=== PATIENT | male | born 1955 | race Caucasian/White ===

== ENCOUNTER 2016-10-28 13:42 | Inpatient (IN) ==
[~2016-10-28 13:42] MED LIST: LIDOCAINE 1% 5 ML VIAL ONE; ONDANSETRON 4 MG/2 ML VIAL ONE; PHENYLEPHRINE 1 MG/10 ML SYRINGE IV ONE; PHENYLEPHRINE 50 MG/5 ML VIAL ONE; PROPOFOL 200 MG/20 ML VIAL IV ONE; ROCURONIUM 100 MG/10 ML VIAL IV ONE
--- NOTE | 2016-10-28 18:31 | Cardiothoracic History & Phys ---
Assessment and Plan - Time spent with patient Time spent with patient: Greater than 30 minutes (1) Coronary artery disease Status: Acute Assessment and plan: 61-year-old year-old male with very complex medical history including compensated liver failure, alcoholic liver cirrhosis, renal failure, history of CVA was found to have severe coronary artery disease as well as pericardial calcifications. We had a very prolonged discussion with his operator Dr. Rivera, his technical business systems analyst Dr. Parrish, as well as the patient and his daughter as the patient presents very high risk for surgery due to his medical history. We clearly explained to the patient that he is high risk for surgery and he is risk of mortality is considerably above average. The patient and his daughter expressed clear understanding of the risks involved and the clearly prefer proceeding with the surgery. I will perform coronary artery bypass graft on October 30. At that time I will also likely perform a pericardiectomy to avoid compression on the heart is a patient has calcified precordium. 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 The patient was kept on anticoagulation during his time at [place]. I would likely restart his anticoagulation after surgery. Meanwhile I will hold anti-coagulation in anticipation for surgery to avoid increased risk of bleeding. Current Visit: Yes History of Present Illness Chief complaint: Coronary artery disease History of present illness: Mr. Chacon is a 61 year old male who I evaluated at [facility] with history of alcoholic liver cirrhosis and liver failure a year ago, now compensated, also renal failure not requiring dialysis at the moment was found to have severe multivessel coronary artery disease most severely in the LAD. Currently the patient has no complaints but his main complaint is that he gets short of breath occasionally as well as leg crampings. He had a cath showing this coronary artery disease. I have been in discussions with Dr. Parrish, Dr. Nava and the patient and the family regarding his high risk for surgery. The patient strongly feels that he should proceed with CABG. Allergies Allergy/AdvReac Type Severity Reaction Status Date / Time Penicillins Allergy Unknown Unknown/Unable Verified 10/28/16 18:25 to obtain 12 point system: reviewed and no additional remarkable complaints except as stated (hpi) Medical,Surgical,& Family Hx - Medical History Cardio: History of: Cardiac Dysrhythmia, Cerebrovascular Disease, CHF, CAD, Hypertension, PVD, Cardiovascular Problems Psychological: History of: Anxiety Disorders Neurology: History of: Cerebrovascular Accident HEENT: History of: Eye Problem Endocrine: History of: Diabetes Mellitus (NIDDM) Respiratory: History of: COPD Renal: History of: Renal Failure Gastrointestinal: History of: Liver Problems, GI Problems - Surgical History Cardiac Surgeries: Sugical HX of: Cardiac Catheterization HEENT Surgeries: Surgical HX of: Eye Surgery - Family History Family History: Reports;: Family Diabetes, Family Heart Disease - Social History Smoking Status: Former smoker Have you smoked in the last 12 months: Yes Time spent discussing smoking cessation with patient: more than 10 minutes Frequency of Alcohol Use: Occasionally Type of Drug Use: None Functional capacity: independent ambulation Cardiology Physical Exam - Constitutional Vitals: Vital Signs Temp Pulse Resp BP Pulse Ox 98.1 F 66 20 136/74 98 10/28/16 18:10 10/28/16 18:10 10/28/16 18:10 10/28/16 18:10 10/28/16 18:10 Intake and Output 10/28/16 10/28/16 10/28/16 06:59 14:59 22:59 Other: Weight 64.864 kg Patient Weight 10/29/16 06:59 Weight 64.864 kg General appearance: normal weight - Head Head exam: Present: normal inspection, other (Artificial eye) - Eye Eye exam: Present: EOMI - ENT ENT exam: Present: normal exam - Neck Neck exam: Present: normal inspection - Respiratory Respiratory exam: Present: prolonged expiratory phase - Cardiovascular Cardiovascular exam: Present: irregular rhythm - GI/Abdominal GI/Abdominal exam: Present: normal bowel sounds Quality Measures - VTE Contraindication to Pharmacological VTE Prophylaxis: Active Bleeding
[2016-10-28 21:06] LABS: Basophils % 0.6 % (0.0-0.8); Eosinophils # 0.1 10*3/uL (0.0-0.87); Eosinophils % 2.6 % (0.00-10.9); Hematocrit 37.7 VOL% (42.0-52.0); Hemoglobin 13.1 GM/DL (14.0-18.0); Immature Granulocytes % 0.2 %; Immature Granulocytes Absolute 0.01 #; Lymphocytes # 0.9 10*3/uL (1.4-4.0); Lymphocytes % 17.3 % (21.2-54.2); Mean Corpuscular HGB Conc 34.7 GM/DL (32-36); Mean Corpuscular Hemoglobin 34 PG (27-34); Mean Corpuscular Volume 97.4 FL (87-102); Mean Platelet Volume 11.3 FL (9.6-12.0); Monocytes # 0.7 10*3/uL (0.11-0.8); Monocytes % 12.6 % (1.7-12.7); Neutrophils # 3.6 10*3/uL (1.4-7.4); Neutrophils % 66.7 % (38.7-73.9); Red Blood Count 3.87 MC/CUMM (3.8-5.5); Red Cell Distribution Width 14.8 % (9.3-17.3); White Blood Count 5.4 T/CUMM (4-12)
[2016-10-28 21:08] LABS: Platelet Count 91 T/CUMM (130-400)
[2016-10-28 21:12] LABS: INR 1.3; PT Patient Result 13.9 SECS
[2016-10-28 21:16] LABS: Partial Thromboplastin Time 41.5 SECS (0-40)
[2016-10-28] MEDS: CHLORHEXIDINE 0.12% ORAL RINSE 60 ML BOTTLE SWISH/SPIT SCH (21:28)
[2016-10-28 21:31] LABS: Albumin 3.2 G/DL (3.4-5.0); Bilirubin,Direct 0.31 MG/DL (0.0-0.20); Bilirubin,Indirect 0.4 MG/DL (0.0-1.0); Bilirubin,Total 0.7 MG/DL (0.2-1.0); Calcium 8.4 MG/DL (8.5-10.1); Magnesium 1.9 MG/DL (1.8-2.4); Osmolality,Calculated 283.5 MOS/KG (273-304); Potassium 4.2 MMOL/L (3.5-5.1); Total Protein 7.6 G/DL (6.4-8.3)
[2016-10-28] MEDS: CHLORHEXIDINE 4% SOLN 118 ML BOTTLE TOP SCH (22:32)
[2016-10-28] MEDS: SODIUM CHLORIDE 0.9% 1,000 ML IV SCH (22:32)
[2016-10-29 05:36] LABS: Basophils % 0.5 % (0.0-0.8); Eosinophils # 0.1 10*3/uL (0.0-0.87); Eosinophils % 2.3 % (0.00-10.9); Hematocrit 32.2 VOL% (42.0-52.0); Hemoglobin 11.4 GM/DL (14.0-18.0); Immature Granulocytes % 0.2 %; Immature Granulocytes Absolute 0.01 #; Lymphocytes % 22.1 % (21.2-54.2); Mean Corpuscular HGB Conc 35.4 GM/DL (32-36); Mean Corpuscular Hemoglobin 34 PG (27-34); Mean Corpuscular Volume 94.7 FL (87-102); Mean Platelet Volume 11.4 FL (9.6-12.0); Monocytes # 0.5 10*3/uL (0.11-0.8); Monocytes % 12.2 % (1.7-12.7); Neutrophils # 2.8 10*3/uL (1.4-7.4); Neutrophils % 62.7 % (38.7-73.9); Red Cell Distribution Width 14.7 % (9.3-17.3); White Blood Count 4.4 T/CUMM (4-12)
[2016-10-29 05:37] LABS: Platelet Count 79 T/CUMM (130-400)
--- NOTE | 2016-10-29 07:57 | XRay Report ---
XR chest 2V Date: 10/28/2016 2:42 PM History: Coronary artery disease Comparison: None Technique: PA and lateral chest Findings: The heart is minimally enlarged with arterial and pericardial/pleural calcifications. Relative elevation of the right hemidiaphragm with dense pleural and parenchymal findings in the right mid to lower lung zone. These findings extending to the level of the right hilum. Degenerative changes are noted. Impression: Minimal cardiomegaly with arterial and pericardial/pleural calcifications. Relative elevation of the right hemidiaphragm with findings in the right mid-lower lung zone which can be seen with pneumonia with associated atelectasis and small to moderate right pleural effusion. Right lateral decubitus chest x-ray may be helpful to determine how much free fluid is present. Follow-up chest x-ray or CT recommended to exclude additional underlying pathology. PROCEDURE INTERPRETED AT [facility] DEPARTMENT OF RADIOLOGY Final Report Signed by: Dr. Elizabeth Escobedo
[2016-10-29] MEDS: CHLORHEXIDINE 0.12% ORAL RINSE 60 ML BOTTLE SWISH/SPIT SCH ×2 (09:57→21:25)
--- NOTE | 2016-10-29 10:47 | XRay Report ---
History: Preop surgery. Coronary artery disease Date: 10/29/2016 Study: Chest x-ray PA and lateral Comparison exam: 10/28/2016 There is minimal cardiomegaly. The mediastinal contours are stable. The pulmonary vasculature is not engorged. There is strandy atelectasis and/or scar in the right lower lung as before, with adjacent mild pleural effusion or pleural scarring. The left lung is clear. Osseous structures are unchanged. Impression: No interval change from the previous study. Continued strandy atelectasis/scar right lower lung with adjacent mild pleural disease. No interval worsening PROCEDURE INTERPRETED AT [facility] DEPARTMENT OF RADIOLOGY Final Report Signed by: Dr. Elva Yap
--- NOTE | 2016-10-29 12:07 | EKG Report ---
Stationary ECG Study [facility] Test Date: 10/29/2016 12:06:18 PM Pat Name: SANJAY HILLS Department: Room: 276 Gender: M Port Surveyor: MIRIAN : 1955 Requested by: Esau Murry Order Number: [id number] Reading MD: MAYCOL MENDOZA Intervals [place] Rate: 56 P: 999 CT: 0 QRS: 94 QRSD: 115 T: 269 QT: 439 QTc: 430 Interpretive Statements ATRIAL FIBRILLATION BORDERLINE RIGHT AXIS DEVIATION POSSIBLE ANTERIOR MYOCARDIAL INFARCTION, OF INDETERMINATE AGE MODERATE T-WAVE ABNORMALITY Electronically Signed On 10-29-16 16:58:35 CDT by MAYCOL MENDOZA [email or web address]
--- NOTE | 2016-10-29 17:48 | Cardiothoracic Progress Note ---
Assessment and Plan (1) Coronary artery disease Status: Acute Assessment and plan: 61-year-old year-old male with very complex medical history including compensated liver failure, alcoholic liver cirrhosis, renal failure, history of CVA was found to have severe coronary artery disease as well as pericardial calcifications. We will proceed with high risk CABG, with possible pericardiectomy tomorrow a.m. The patient currently has no symptoms. Current Visit: Yes Exam (Progress Note) - Constitutional Vitals: Period Temp Pulse Resp BP Sys/[place] Pulse Ox Last 24 Hr 95.8 F-98.6 F 58-68 16-20 103-145/62-92 96-100 Result/EKG - Labs CBC & BMP: 10/29/16 04:15 10/28/16 21:02 Labs: Laboratory Results - last 24 hr 10/28/16 10/28/16 10/28/16 18:22 21:02 21:02 WBC 5.4 RBC 3.87 Hgb 13.1 L Hct 37.7 L MCV 97.4 MCH 34 MCHC 34.7 RDW 14.8 Plt Count 91 L MPV 11.3 Neut % (Auto) 66.7 Lymph % (Auto) 17.3 L Day % (Auto) 12.6 Eos % (Auto) 2.6 Baso % (Auto) 0.6 Neut # (Auto) 3.6 Lymph # (Auto) 0.9 L Day # (Auto) 0.7 Eos # (Auto) 0.1 Baso # (Auto) 0.0 Immature Gran % 0.2 Nucleated RBC % 0.0 Immature Gran # 0.01 Nucleated RBCs # 0.00 Immature Plt Fraction 3.8 INR 1.3 PT Patient/Control Mix 13.9 Circ Anticoag PTT 41.5 H Sodium Potassium Chloride Carbon Dioxide Anion Gap BUN Creatinine GFR Calculation BUN/Creatinine Ratio Glucose Calculated Osmolality Calcium Magnesium Total Bilirubin Direct Bilirubin Indirect Bilirubin AST ALT Alkaline Phosphatase Total Protein Albumin Globulin Albumin/Globulin Ratio Blood Type O POSITIVE Antibody Screen Negative Crossmatch 10/28/16 10/29/16 10/29/16 21:02 04:15 04:15 WBC 4.4 RBC 3.40 L Hgb 11.4 L Hct 32.2 L MCV 94.7 MCH 34 MCHC 35.4 RDW 14.7 Plt Count 79 L MPV 11.4 Neut % (Auto) 62.7 Lymph % (Auto) 22.1 Day % (Auto) 12.2 Eos % (Auto) 2.3 Baso % (Auto) 0.5 Neut # (Auto) 2.8 Lymph # (Auto) 1.0 L Day # (Auto) 0.5 Eos # (Auto) 0.1 Baso # (Auto) 0.0 Immature Gran % 0.2 Nucleated RBC % 0.0 Immature Gran # 0.01 Nucleated RBCs # 0.00 Immature Plt Fraction 3.6 INR PT Patient/Control Mix Circ Anticoag PTT Sodium 139 Potassium 4.2 Chloride 103 Carbon Dioxide 30 Anion Gap 10.2 BUN 37 H Creatinine 2.00 H GFR Calculation 35 BUN/Creatinine Ratio 18.00 Glucose 70 L Calculated Osmolality 283.5 Calcium 8.4 L Magnesium 1.9 Total Bilirubin 0.70 Direct Bilirubin 0.310 H Indirect Bilirubin 0.4 AST 101 H ALT 92 H Alkaline Phosphatase 171 H Total Protein 7.6 Albumin 3.2 L Globulin 4.4 H Albumin/Globulin Ratio 0.7 L Blood Type O POSITIVE Antibody Screen Negative Crossmatch See Detail Quality Measures - VTE Contraindication to Pharmacological VTE Prophylaxis: Active Bleeding
--- NOTE | 2016-10-29 18:32 | ECHO Report ---
Frantz Chacon Exam Date: 10/29/2016 07:32 Referring Physician: Technologist: deobra Ly ARDMS, RVT Age: 61 Ht (in): 68 Wt (lb): 143 Gender: M Exam Location: [facility] Echo Indications: CAD BP: 138 / 85 HR: 66 Rhythm: Sinus Technical Quality: Fair IMPRESSIONS EF 55 %. Septal hypokinesis. Grade I/IV diastolic dysfunction (abnormal relaxation filling pattern), normal to mildly elevated filling pressures. Mildly increased right ventricular size. Moderately increased right atrial size. Moderately increased left atrial size. Probable thrombus adherent posterior wall. LA is calcified. Mildly thickened mitral valve. Trace mitral valve regurgitation. Aortic valve sclerosis. No aortic valve regurgitation. Severe tricuspid valve regurgitation. FLZ58-06 mmHG. Pulmonic valve not well visualized. Normal pericardium without effusion. Normal ascending aorta dimension. MEASUREMENTS (Male / Female) Normal Values 2D ECHO LV Diastolic Diameter PLAX 4.4 cm 4.2 - 5.9 / 3.9 - 5.3 cm LV Systolic Diameter PLAX 3.0 cm LV Fractional Shortening PLAX 31.4 % IVS Diastolic Thickness 1.4 cm 0.6 - 1.0 / 0.6 - 0.9 cm LVPW Diastolic Thickness 1.1 cm 0.6 - 1.0 / 0.6 - 0.9 cm RV Internal Dim ED PLAX 3.3 cm Aortic Root Diameter 3.5 cm LA Systolic Diameter LX 4.8 cm 3.0 - 4.0 / 2.7 - 3.8 cm DOPPLER TR Peak Velocity 407.0 cm/s TR Peak Gradient 66.3 mmHg FINDINGS Left Ventricle Normal left ventricular cavity size. EF 55 %.septal hypokinesis. Grade I/IV diastolic dysfunction (abnormal relaxation filling pattern), normal to mildly elevated filling pressures. Right Ventricle Mildly increased right ventricular size. Right Atrium Moderately increased right atrial size. Left Atrium Moderately increased left atrial size. Probable thrombus adherent posterior wall. .LA is calcified. Mitral Valve Mildly thickened mitral valve. Trace mitral valve regurgitation. Aortic Valve Aortic valve sclerosis. No aortic valve regurgitation. Tricuspid Valve Morphologically normal tricuspid valve. Severe tricuspid valve regurgitation. UTZ70-76 mmHG. Pulmonic Valve Pulmonic valve not well visualized. Pericardium Normal pericardium without effusion. Aorta Normal ascending aorta dimension. Gareth Quiroz (Electronically Signed) Final Date: 29 October 2016 18:07
[2016-10-29] MEDS: CHLORHEXIDINE 4% SOLN 118 ML BOTTLE TOP SCH ×2 (18:42→21:26)
[2016-10-30] MEDS ORDERED: CEFUROXIME INJ 1,500 MG in SODIUM CHLORIDE 0.9% 100 ML IV ONE (00:01)
[2016-10-30] MEDS ORDERED: DIAZEPAM 5 MG TABLET PO ONE (05:30)
[2016-10-30] MEDS ORDERED: FAMOTIDINE 20 MG TABLET PO ONE (05:30)
[2016-10-30] MEDS ORDERED: PAPAVERINE 60 MG/2 ML VIAL ONE (05:33)
[2016-10-30] MEDS ORDERED: VANCOMYCIN 1,000 MG VIAL ONE (05:34)
[2016-10-30] MEDS ORDERED: TISSUE ADHESIVE 1 EACH APPLICATOR TOP ONE (05:34)
[2016-10-30] MEDS: SODIUM CHLORIDE 0.9% 1,000 ML IV SCH (05:59)
[2016-10-30] MEDS ORDERED: LIDOCAINE 100 MG/5 ML SYRINGE ONE (06:47)
[2016-10-30] MEDS ORDERED: ETOMIDATE 20 MG/10 ML VIAL IV ONE (06:47)
[2016-10-30] MEDS ORDERED: CALCIUM CHLORIDE 1,000 MG/10 ML SYRINGE IV ONE ×2 (06:47→07:08)
[2016-10-30] MEDS ORDERED: AMINOCAPROIC ACID 5,000 MG/20 ML VIAL IV ONE (06:47)
[2016-10-30] MEDS ORDERED: VECURONIUM 10 MG VIAL IV ONE (06:47)
[2016-10-30] MEDS ORDERED: EPINEPHrine 1 MG/10 ML SYRINGE ONE (07:07)
[2016-10-30] MEDS ORDERED: SODIUM BICARBONATE 50 MEQ/50 ML SYRINGE IV ONE ×2 (07:09→09:51)
[2016-10-30 07:41] LABS: ABG Base Excess -2.1 MMOL/L (-2.5-2.5); ABG HCO3 22.7 MMOL/L (20-26); ABG PCO2 26.9 MM HG (35-48); ABG PH 7.484 (7.35-7.45); Glucose Heart Surgery 88 MG/DL (74-106); Hematocrit Heart Surgery 34.1 PERCENT (42-52); Ionized Calcium Arterial 1.14 MMOL/L (1.21-1.46); PCO2 Patient Temp Arterial 26.9 MMHG; PH Patient Temp Arterial 7.484; Patient Temperature 37 CELCIUS; Potassium Heart/CVR 3.8 MMOL/L (3.5-5.1); Sodium Heart/CVR 138 MMOL/L (135-145)
[2016-10-30] MEDS ORDERED: MIDAZOLAM 10 MG/2 ML VIAL ONE ×2 (08:02→11:06)
[2016-10-30 08:14] LABS: Apearance,Urine Clear (Clear); Bilirubin,Urine Negative (Negative); Blood, Urine Trace mg/dL (Negative); Glucose,Urine (UA) Negative (Negative); Ketones,Urine Negative (Negative); Nitrite,Urine Negative (Negative); Protein,Urine >=500 MG/DL; RBC,Urine 1 /HPF (0-4); Urine Color Yellow (Yellow); Urine Specific Gravity 1.015 (1.001-1.035); WBC,Urine <1 /HPF (0-6)
[2016-10-30 08:16] LABS: Urine Urobilinogen 0.2 EU/DL (0.2-1.0)
[2016-10-30] MEDS ORDERED: CHLORHEXIDINE 4% SOLN 118 ML BOTTLE TOP SCH (09:00)
[2016-10-30 09:05] LABS: Hematocrit Heart Surgery 24.1 PERCENT (42-52); Hemoglobin Heart Surgery 7.7 G/DL (14.0-18.0); PCO2 Patient Temp Venous 30.7 MM HG; PH Patient Temp Venous 7.473; Potassium Heart/CVR 5.1 MMOL/L (3.5-5.1); VBG Base Excess -0.6 MEQ/L (0-4); VBG HCO3 23.7 MEQ/L (24-28); VBG Oxygen Saturation 74.5 %; VBG PCO2 33.9 MMHG (41-51); VBG PH 7.444; VBG PO2 40.2 MMHG (17-40)
[2016-10-30 09:45] LABS: ABG Base Excess -0.9 MMOL/L (-2.5-2.5); ABG HCO3 23.7 MMOL/L (20-26); ABG PCO2 28.9 MM HG (35-48); ABG PH 7.486 (7.35-7.45); ABG TCO2 20.2 MMOL/L (23-27); Glucose Heart Surgery 231 MG/DL (74-106); Hematocrit Heart Surgery 25.9 PERCENT (42-52); Hemoglobin Heart Surgery 8.3 G/DL (14.0-18.0); Ionized Calcium Arterial 1.05 MMOL/L (1.21-1.46); PCO2 Patient Temp Arterial 28.9 MMHG; PH Patient Temp Arterial 7.486; Patient Temperature 37 CELCIUS; Sodium Heart/CVR 131 MMOL/L (135-145)
[2016-10-30] MEDS ORDERED: ALBUMIN 25% 25 GM/100 ML VIAL IV ONE (09:49)
[2016-10-30] MEDS ORDERED: HEPARIN 10,000 UNIT/10 ML VIAL ONE (09:50)
[2016-10-30] MEDS ORDERED: MAGNESIUM SULFATE 1 GM/2 ML VIAL ONE (09:51)
[2016-10-30] MEDS ORDERED: methylPREDNISolone SOD SUC 1,000 MG/8 ML VIAL ONE (09:51)
[2016-10-30] MEDS ORDERED: MANNITOL 12.5 GM/50 ML VIAL IV ONE (09:52)
[2016-10-30] MEDS ORDERED: PROTAMINE SULFATE 50 MG/5 ML VIAL IV ONE (09:52)
[2016-10-30] MEDS ORDERED: DEXTROSE 5% KCL 20 MEQ 20 MEQ/1,000 ML BAG IV ONE (09:52)
[2016-10-30] MEDS: CHLORHEXIDINE 0.12% ORAL RINSE 60 ML BOTTLE SWISH/SPIT SCH ×2 (09:56→22:19)
[2016-10-30] MEDS ORDERED: NITROPRUSSIDE 50 MG/2 ML VIAL ONE (10:01)
[2016-10-30] MEDS ORDERED: INSULIN REGULAR DRIP 100 ML IV ONE (10:02)
[2016-10-30] MEDS: SODIUM CHLORIDE 0.45% 1,000 ML IV SCH ×2 (10:25)
[2016-10-30] MEDS ORDERED: MORPHINE 10 MG/1 ML VIAL IV PRN (10:44)
[2016-10-30] MEDS ORDERED: MAGNESIUM SULF RIDER 2 GM in PREMIX 1 EACH IV PRN (10:44)
[2016-10-30] MEDS ORDERED: CHLORHEXIDINE 4% SOLN 118 ML BOTTLE TOP PRN (10:44)
[2016-10-30] MEDS ORDERED: MIDAZOLAM 2 MG/2 ML VIAL IV PRN (10:44)
[2016-10-30] MEDS ORDERED: DEXTROSE 50% 25 GM/50 ML SYRINGE IV PRN ×2 (10:44)
[2016-10-30] MEDS ORDERED: POTASSIUM CHLORIDE RIDER 10 MEQ in PREMIX 1 EACH IV PRN (10:44)
[2016-10-30] MEDS ORDERED: ACETAMINOPHEN 650 MG SUPP RECTAL PRN (10:44)
[2016-10-30] MEDS ORDERED: ONDANSETRON 4 MG/2 ML VIAL IV PRN (10:44)
[2016-10-30] MEDS ORDERED: SODIUM CHLORIDE 0.9% 250 ML IV PRN (10:44)
[2016-10-30] MEDS ORDERED: MAGNESIUM SULF RIDER 4 GM in PREMIX 1 EACH IV PRN (10:44)
[2016-10-30] MEDS ORDERED: INSULIN REGULAR 100 UNIT/ML IV PRN (10:44)
[2016-10-30] MEDS ORDERED: CALCIUM CHLORIDE 1,000 MG/10 ML SYRINGE IV PRN (10:44)
[2016-10-30] MEDS ORDERED: SEVOFLURANE 1 UNIT/15 MINUTE INH ONE (11:05)
[2016-10-30] MEDS ORDERED: fentaNYL 100 MCG/2 ML VIAL ONE (11:06)
[2016-10-30] MEDS ORDERED: SODIUM CHLORIDE 0.9% 250 ML IV ONE (11:06)
[2016-10-30] MEDS ORDERED: SODIUM CHLORIDE 0.9% 2,000 ML IV ONE (11:06)
[2016-10-30 11:19] LABS: ABG Base Excess -1.9 MMOL/L (-2.5-2.5); ABG HCO3 22.9 MMOL/L (20-26); ABG Oxygen Saturation 99.9 % (95-100); ABG PCO2 30.7 MM HG (35-48); ABG PH 7.452 (7.35-7.45); ABG TCO2 19.7 MMOL/L (23-27); Glucose Heart Surgery 163 MG/DL (74-106); Hematocrit Heart Surgery 27.8 PERCENT (42-52); Potassium Heart/CVR 3.9 MMOL/L (3.5-5.1)
[2016-10-30 11:25] LABS: Basophils % 0.4 % (0.0-0.8); Eosinophils # 0.1 10*3/uL (0.0-0.87); Eosinophils % 1.1 % (0.00-10.9); Hematocrit 26.7 VOL% (42.0-52.0); Immature Granulocytes % 0.9 %; Immature Granulocytes Absolute 0.04 #; Lymphocytes # 0.4 10*3/uL (1.4-4.0); Lymphocytes % 8.3 % (21.2-54.2); Mean Corpuscular HGB Conc 34.5 GM/DL (32-36); Mean Corpuscular Hemoglobin 33 PG (27-34); Mean Corpuscular Volume 96.7 FL (87-102); Mean Platelet Volume 10.7 FL (9.6-12.0); Monocytes # 0.3 10*3/uL (0.11-0.8); Monocytes % 7.6 % (1.7-12.7); Neutrophils # 3.6 10*3/uL (1.4-7.4); Neutrophils % 81.7 % (38.7-73.9); Red Blood Count 2.76 MC/CUMM (3.8-5.5); Red Cell Distribution Width 14.8 % (9.3-17.3); White Blood Count 4.5 T/CUMM (4-12)
[2016-10-30] MEDS ORDERED: INSULIN REGULAR 100 UNIT/ML IV ONE (11:29)
[2016-10-30 11:30] LABS: Hemoglobin 9.2 GM/DL (14.0-18.0); Platelet Count 88 T/CUMM (130-400)
[2016-10-30] MEDS ORDERED: INSULIN REGULAR DRIP 100 ML IV SCH (11:30)
[2016-10-30] MEDS: POTASSIUM CHLORIDE RIDER 20 MEQ in PREMIX 1 EACH IV PRN ×3 (11:37→19:02)
[2016-10-30 11:41] LABS: INR 1.3; Lactic Acid 2.2 MMOL/L (0.4-2.0); PT Patient Result 13.7 SECS; Partial Thromboplastin Time 34.5 SECS (0-40)
--- NOTE | 2016-10-30 12:06 | EKG Report ---
Stationary ECG Study [facility] Test Date: 10/30/2016 12:05:16 PM Pat Name: SANJAY HILLS Department: Room: 104 Gender: M Counselor Supervisor: MARTHA : 1955 Requested by: Jackie Saravia Order Number: [id number] Reading MD: MAYCOL MENDOZA Intervals [place] Rate: 76 P: 999 AL: 0 QRS: 72 QRSD: 114 T: 238 QT: 418 QTc: 449 Interpretive Statements ATRIAL FIBRILLATION ST DEVIATION AND MODERATE T-WAVE ABNORMALITY Electronically Signed On 10-31-16 15:47:46 CDT by MAYCOL MENDOZA [email or web address]
[2016-10-30 12:08] LABS: Calcium 8.5 MG/DL (8.5-10.1); Magnesium 1.9 MG/DL (1.8-2.4)
--- NOTE | 2016-10-30 12:21 | Cardiology Consult Note ---
Assessment and Plan - Time spent with patient Time spent with patient: Greater than 30 minutes Time spent discussing smoking cessation with patient: 3 to 10 minutes (1) S/P CABG x 1 Status: Acute Assessment and plan: SEE PLAN OF CARE LISTED BELOW Current Visit: Yes (2) Hypertension Status: Chronic Assessment and plan: SEE PLAN OF CARE LISTED BELOW Current Visit: Yes (3) Dyslipidemia Status: Chronic Assessment and plan: SEE PLAN OF CARE LISTED BELOW Current Visit: Yes (4) Atrial fibrillation Status: Chronic Assessment and plan: SEE PLAN OF CARE LISTED BELOW Current Visit: Yes Qualifiers: Atrial fibrillation type: persistent Qualified Code(s): I48.1 - Persistent atrial fibrillation (5) Cirrhosis of liver Status: Chronic Assessment and plan: SEE PLAN OF CARE LISTED BELOW Current Visit: Yes (6) Liver failure Status: Chronic Assessment and plan: SEE PLAN OF CARE LISTED BELOW Current Visit: Yes (7) COPD (chronic obstructive pulmonary disease) Status: Acute Current Visit: Yes (8) Tobacco abuse Status: Chronic Assessment and plan: SEE PLAN OF CARE LISTED BELOW Current Visit: Yes (9) Anemia Status: Acute Assessment and plan: SEE PLAN OF CARE LISTED BELOW Current Visit: Yes (10) Coronary artery disease Status: Chronic Assessment and plan: SEE PLAN OF CARE LISTED BELOW Current Visit: Yes Qualifiers: Coronary Disease-Associated Artery/Lesion type: [place] artery [place] vs. transplanted heart: [place] heart Associated angina: without angina Qualified Code(s): I25.10 - Atherosclerotic heart disease of [place] coronary artery without angina pectoris (11) CKD (chronic kidney disease) stage 3, GFR 30-59 ml/min Status: Chronic Assessment and plan: SEE PLAN OF CARE LISTED BELOW Current Visit: Yes (12) Left atrial thrombus Status: Chronic Assessment and plan: SEE PLAN OF CARE LISTED BELOW Current Visit: Yes (13) Pericardial calcification Status: Chronic Assessment and plan: SEE PLAN OF CARE LISTED BELOW Current Visit: Yes History of Present Illness - Data of Consult Patient: new to practice Consult date: 10/30/16 Requesting Physician: Danitza Epperson - Consult Narrative Reason for consult: known CAD S/P CABG History of present illness: DRAINAGE DESIGN COORDINATOR: DR. PARRISH ([place]) DR. SCOTT ([facility] Patient is being seen in the cardiovascular recovery unit Mr. Chacon, 61WM, with risk factors significant for: known severe multivessel coronary artery disease, hypertension, dyslipidemia, diabetes, CVA, tobaccoism. History of chronic atrial fibrillation, decompensated liver failure, alcoholic liver cirrhosis, renal failure, severe COPD. He is followed by Dr. Nava, Surgical Training Specialist at [place]. Patient underwent cardiac catheterization at [facility] was found to have severe multivessel coronary artery disease, calcified pericardium. Recent echocardiogram revealed: EF 55%, grade 1 diastolic dysfunction, PA P 60-65 mmHg, left atrial thrombi. He was previously on anticoagulation (unknown agent) and this was held prior to surgery. Patient was transferred to [facility] October 28, 2016 for elective CABG and possible pericardiotomy. OCTOBER 30, 2016: This morning, patient underwent CABG 1 (REYNOSO to LAD). He did not require pericardiotomy. He tolerated the procedure well and is currently in a recovery unit. Extubated, following commands appropriately with little chest tube output. He is currently in atrial fibrillation, rate controlled. IV Amiodarone was initiated this afternoon. Labs are stable at this point. Obviously, he is anemic as expected. Creatinine is improved to 1.6 from admission creatinine of 2.0. He is off all pressors and only on IV insulin. Continue Aspirin. Avoiding statin drugs due to his history of hepatic failure, alcoholic cirrhosis. Will add Zetia instead. Beta-margaret when stable. May avoid KLEBER inhibitor for fear of worsening renal insufficiency. Incentive spirometry has been encouraged. Cardiac rehab consulted. Will further discuss with Dr. Scott and await additional recommendations. ASSESSMENT/PLAN: 1. CAD S/P CABG (REYNOSO- LAD) -in the early hours postoperatively. Appears to be stable. Continue Aspirin 2. HYPERTENSION - stable at this time. Beta-blockade when able. Avoiding KLEBER inhibitor for fear of worsening renal insufficiency 3. DYSLIPIDEMIA - will avoid lipid-lowering agents due to his history of cirrhosis of the liver, liver failure. Add Zetia instead 4. PERICARDIAL CALCIFICATION - originally thought he would need a pericardiotomy. Did not require such during open chest procedure 5. TOBACCOISM - greater than 5 minutes was spent discussing the merits of tobacco cessation 6. CHRONIC KIDNEY DISEASE, STAGE III - monitor creatinine daily. Slightly improved since admission. Will not be eligible for KLEBER/ARB 7. COMPENSATED LIVER FAILURE - followed by Dr. Nava at [place]. Avoiding statin drug and other hepatotoxic medicines 8. ALCOHOLIC LIVER CIRRHOSIS - followed by Dr. Heaton in [place]. Avoiding statin drugs and other hepatotoxic medications 9. COPD, SEVERE - pulmonary toilet, incentive spirometry 10. HISTORY OF CVA - several years ago suffered CVA. Continue current plan of care. Currently on Aspirin. 11. ANEMIA - as expected post CABG. Continue to follow closely. Daily monitoring of labs 12. ATRIAL FIB, CHRONIC - according to the notes we have from [facility], he has chronic atrial fibrillation. There is mention he was previously on an anticoagulant of some sort but the agent is unknown. I will request further records from Dr. Parrish's office today. 13. LEFT ATRIAL THROMBUS - will need anticoagulation if possible CC: Danitza Epperson - Home Medications and Allergies Home Medications: Home Medications Medication Instructions Recorded Confirmed Type Furosemide [Furosemide] 20 mg PO DAILY 10/28/16 10/28/16 History Nebivolol [Bystolic] 10 mg PO DAILY 10/28/16 10/28/16 History Spironolactone [Spironolactone] 50 mg PO DAILY 10/28/16 10/28/16 History Allergies/Adverse Reactions: Allergies Allergy/AdvReac Type Severity Reaction Status Date / Time Penicillins Allergy Unknown Unknown/Unable Verified 10/28/16 18:25 to obtain Review of systems: REVIEW OF SYSTEMS: - Constitutional Constitutional: Present: Fatigue. Absent: syncope, anorexia, night sweats - EENT Eyes: Absent: blurry vision, loss of vision, diplopia Ears: Absent: decreased hearing, ear pain, ear discharge - Cardiovascular Cardiovascular: Present: chest pain with exertion, dyspnea on exertion. Denies edema. Occasional palpitations. Absent: chest pain with deep breath, claudication - Respiratory Respiratory: Present: LUCIO, cough. Absent: wheezing, hemoptysis, change in phlegm color - Gastrointestinal Gastrointestinal: Absent: abdominal pain, hematemesis, hematochezia, melena, change in bowel habits, nausea - Genitourinary Genitourinary: Absent: difficulty urinating, dysuria, urinary hesitancy, flank pain - Musculoskeletal Musculoskeletal: Present: back pain Absent: joint swelling, muscle cramps, muscle weakness - Neurological Neurological: Present: normal gait without frequent falls. Absent: dizziness, hemiparesis - Psychiatric Psychiatric: Absent: anxiety, depression, difficulty concentrating - Endocrine Endocrine: Present: fatigue. Absent: cold intolerance, heat intolerance, polyuria, polyphagia, polydipsia - Hematologic/Lymphatic Hematologic/Lymphatic: Present: easy bruising. Absent: easy bleeding -Integumentary Integumentary: Absent: lesions, rashes, skin breakdown Medical,Surgical,& Family Hx - Medical History Cardio: History of: Cardiac Dysrhythmia, Cerebrovascular Disease, CHF, CAD, Hypertension, PVD, Cardiovascular Problems Psychological: History of: Anxiety Disorders Neurology: History of: Cerebrovascular Accident HEENT: History of: Eye Problem Endocrine: History of: Diabetes Mellitus (NIDDM) Respiratory: History of: COPD Renal: History of: Renal Failure, Renal Problems (right kidney missing?) Genitourinary: History of: Kidney Stones Gastrointestinal: History of: Liver Problems, GI Problems - Surgical History Cardiac Surgeries: Sugical HX of: Cardiac Catheterization HEENT Surgeries: Surgical HX of: Eye Surgery - Family History Family History: Reports;: Family Diabetes, Family Heart Disease - Social History Smoking Status: Former smoker Have you smoked in the last 12 months: Yes Time spent discussing smoking cessation with patient: 3 to 10 minutes Frequency of Alcohol Use: Occasionally Type of Drug Use: None Physical Examination Vital Signs Temp Pulse Resp BP Pulse Ox 98.1 F 66 20 136/74 98 10/28/16 18:10 10/28/16 18:10 10/28/16 18:10 10/28/16 18:10 10/28/16 18:10 Exam: General: [Appears well with no apparent distress.] [Pleasant and cooperative. ] [Appears comfortable.] HEENT: [PERRL, normocephalic, atraumatic. Mucous membranes moist. No jaundice noted. Conjunctiva moist and clear, sclerae anicteric] Neck: No obvious JVD/HJR, no thyromegaly or lymphadenopathy noted. No carotid bruit appreciated Cardiac: [Irregularly irregular rhythm, controlled rate] [Soft cardiac rub. Lungs: [Clear to auscultation without accessory muscle use to assist the respiratory pattern.] Oxygen in use via nasal cannula. Chest tubes intact with minimal output Abdomen: Soft, bowel sounds normoactive. Nontender and nondistended. No abdominal bruit or thrill noted. No masses noted. Musculoskeletal: No fluid collection. Decreased range of motion is noted. Extremities: No clubbing, cyanosis noted. [ No edema noted.] Upper extremity pulses 2+. Lower extremity pulses 2+. Capillary refill less than 3 seconds. Skin: No unusual lesions or rashes. No skin breakdown appreciated. Neuro: Awake, alert and oriented 3. Moves all extremities well without hemiparesis or paralysis. No essential tremor is appreciated. Result/EKG - Labs CBC & BMP: 10/30/16 11:08 10/30/16 11:08 Lab Results: I have reviewed the past 24 hour labs Labs: Laboratory Results - last 24 hr 10/29/16 10/30/16 10/30/16 04:15 05:56 07:05 WBC RBC Hgb Hct MCV MCH MCHC RDW Plt Count MPV Neut % (Auto) Lymph % (Auto) [place] % (Auto) Eos % (Auto) Baso % (Auto) Neut # (Auto) Lymph # (Auto) [place] # (Auto) Eos # (Auto) Baso # (Auto) Immature Gran % Nucleated RBC % Immature Gran # Nucleated RBCs # Immature Plt Fraction INR PT Patient/Control Mix Circ Anticoag PTT Patient Temperature ABG pH ABG pH at Pt Temp ABG pCO2 ABG pCO2 at Pt Temp ABG pO2 ABG pO2 at Pt Temp ABG HCO3 ABG Total CO2 ABG O2 Saturation ABG Base Excess ABG Sodium VBG pH VBG pCO2 VBG pO2 VBG HCO3 VBG Total CO2 VBG O2 Saturation VBG Base Excess Hemoglobin Hematocrit Potassium Glucose Ionized Calcium FiO2 Sodium Chloride Carbon Dioxide Anion Gap BUN Creatinine GFR Calculation BUN/Creatinine Ratio POC Glucose 93 Calculated Osmolality Lactic Acid Calcium Venous Ioniz Calcium Magnesium Urine Color Yellow Urine Appearance Clear Urine pH 6.0 Ur Specific [place] 1.015 Urine Protein >=500 Urine Glucose (UA) Negative Urine Ketones Negative Urine Blood Trace Urine Nitrate Negative Urine Bilirubin Negative Urine Urobilinogen 0.2 Urine Leukocytes Negative Urine RBC 1 Urine WBC <1 Ur Culture Indicated? Not indicated Blood Type O POSITIVE Antibody Screen Negative Crossmatch See Detail 10/30/16 10/30/16 10/30/16 07:35 07:35 09:05 WBC RBC Hgb Hct MCV MCH MCHC RDW Plt Count 73 L MPV Neut % (Auto) Lymph % (Auto) [place] % (Auto) Eos % (Auto) Baso % (Auto) Neut # (Auto) Lymph # (Auto) [place] # (Auto) Eos # (Auto) Baso # (Auto) Immature Gran % Nucleated RBC % Immature Gran # Nucleated RBCs # Immature Plt Fraction INR PT Patient/Control Mix Circ Anticoag PTT Patient Temperature 37 35 ABG pH 7.484 H ABG pH at Pt Temp 7.484 7.473 ABG pCO2 26.9 L ABG pCO2 at Pt Temp 26.9 30.7 ABG pO2 440.0 H ABG pO2 at Pt Temp 440.0 35.0 ABG HCO3 22.7 ABG Total CO2 18.0 L ABG O2 Saturation 100.0 ABG Base Excess -2.1 ABG Sodium 138 130 L VBG pH 7.444 VBG pCO2 33.9 L VBG pO2 40.2 H VBG HCO3 23.7 L VBG Total CO2 21.8 VBG O2 Saturation 74.5 VBG Base Excess -0.6 L Hemoglobin 11.0 L 7.7 L D Hematocrit 34.1 L 24.1 L Potassium 3.8 5.1 Glucose 88 297 H Ionized Calcium 1.14 L FiO2 80.00 Sodium Chloride Carbon Dioxide Anion Gap BUN Creatinine GFR Calculation BUN/Creatinine Ratio POC Glucose Calculated Osmolality Lactic Acid Calcium Venous Ioniz Calcium 0.94 L Magnesium Urine Color Urine Appearance Urine pH Ur Specific [place] Urine Protein Urine Glucose (UA) Urine Ketones Urine Blood Urine Nitrate Urine Bilirubin Urine Urobilinogen Urine Leukocytes Urine RBC Urine WBC Ur Culture Indicated? Blood Type Antibody Screen Crossmatch 10/30/16 10/30/16 10/30/16 09:40 09:40 11:08 WBC 4.5 RBC 2.76 L Hgb 9.2 L D Hct 26.7 L MCV 96.7 MCH 33 MCHC 34.5 RDW 14.8 Plt Count 63 L 88 L D MPV 10.7 Neut % (Auto) 81.7 H Lymph % (Auto) 8.3 L [place] % (Auto) 7.6 Eos % (Auto) 1.1 Baso % (Auto) 0.4 Neut # (Auto) 3.6 Lymph # (Auto) 0.4 L [place] # (Auto) 0.3 Eos # (Auto) 0.1 Baso # (Auto) 0.0 Immature Gran % 0.9 Nucleated RBC % 0.0 Immature Gran # 0.04 Nucleated RBCs # 0.00 Immature Plt Fraction 2.7 INR PT Patient/Control Mix Circ Anticoag PTT Patient Temperature 37 ABG pH 7.486 H ABG pH at Pt Temp 7.486 ABG pCO2 28.9 L ABG pCO2 at Pt Temp 28.9 ABG pO2 392.0 H ABG pO2 at Pt Temp 392.0 ABG HCO3 23.7 ABG Total CO2 20.2 L ABG O2 Saturation 100.0 ABG Base Excess -0.9 ABG Sodium 131 L VBG pH VBG pCO2 VBG pO2 VBG HCO3 VBG Total CO2 VBG O2 Saturation VBG Base Excess Hemoglobin 8.3 L Hematocrit 25.9 L Potassium 5.0 Glucose 231 H Ionized Calcium 1.05 L FiO2 Sodium Chloride Carbon Dioxide Anion Gap BUN Creatinine GFR Calculation BUN/Creatinine Ratio POC Glucose Calculated Osmolality Lactic Acid Calcium Venous Ioniz Calcium Magnesium Urine Color Urine Appearance Urine pH Ur Specific [place] Urine Protein Urine Glucose (UA) Urine Ketones Urine Blood Urine Nitrate Urine Bilirubin Urine Urobilinogen Urine Leukocytes Urine RBC Urine WBC Ur Culture Indicated? Blood Type Antibody Screen Crossmatch 10/30/16 10/30/16 10/30/16 11:08 11:08 11:17 WBC RBC Hgb Hct MCV MCH MCHC RDW Plt Count MPV Neut % (Auto) Lymph % (Auto) [place] % (Auto) Eos % (Auto) Baso % (Auto) Neut # (Auto) Lymph # (Auto) [place] # (Auto) Eos # (Auto) Baso # (Auto) Immature Gran % Nucleated RBC % Immature Gran # Nucleated RBCs # Immature Plt Fraction INR 1.3 PT Patient/Control Mix 13.7 Circ Anticoag PTT 34.5 Patient Temperature ABG pH 7.452 H ABG pH at Pt Temp ABG pCO2 30.7 L ABG pCO2 at Pt Temp ABG pO2 211.0 H ABG pO2 at Pt Temp ABG HCO3 22.9 ABG Total CO2 19.7 L ABG O2 Saturation 99.9 ABG Base Excess -1.9 ABG Sodium VBG pH VBG pCO2 VBG pO2 VBG HCO3 VBG Total CO2 VBG O2 Saturation VBG Base Excess Hemoglobin 9.0 L Hematocrit 27.8 L Potassium 4.0 3.9 Glucose 161 H 163 H Ionized Calcium FiO2 Sodium 136 Chloride 102 Carbon Dioxide 24 Anion Gap 14.0 BUN 31 H Creatinine 1.60 H GFR Calculation 46 BUN/Creatinine Ratio 19.00 POC Glucose Calculated Osmolality 281.0 Lactic Acid 2.2 H Calcium 8.5 Venous Ioniz Calcium Magnesium 1.9 Urine Color Urine Appearance Urine pH Ur Specific [place] Urine Protein Urine Glucose (UA) Urine Ketones Urine Blood Urine Nitrate Urine Bilirubin Urine Urobilinogen Urine Leukocytes Urine RBC Urine WBC Ur Culture Indicated? Blood Type Antibody Screen Crossmatch - Diagnostic Findings Procedure: Chest x-ray: report reviewed by me - EKG EKG results: interpreted by me EKG shows: atrial fibrillation Quality Measures - VTE Contraindication to Pharmacological VTE Prophylaxis: Active Bleeding
[2016-10-30 12:47] LABS: Giant Platelets Few; Hypochromasia 1+; Ovalocytes Slight; Platelet Estimate Decreased
--- NOTE | 2016-10-30 12:50 | XRay Report ---
Portable chest Date: 10/30/2016 Clinical history: Endotracheal tube line placement Comparison: 10/29/2016 Technique: Portable AP sitting chest Findings: Interval median sternotomy with the heart slightly smaller in size. The endotracheal tube and nasogastric tube are in satisfactory position. Right IJ introducer with tip in SVC. Mediastinal chest tubes are noted. Reduced parenchymal findings with smaller right pleural effusion. Right basilar pneumothorax which measures 13 mm from the lateral pleural line to the right lateral chest wall. Impression: Interval median sternotomy with persistent cardiomegaly. Supportive devices in satisfactory position. Reduced pleural-parenchymal findings at the right lung base. Loculated appearing pneumothorax which measures 13 mm in the lateral pleural line to the lateral chest wall. The pneumothorax may actually be larger in size and suboptimally demonstrated on this supine film. This finding could be related to possible trapped lung but follow-up chest x-ray is recommended. This report was called the patient's nurse, Elena at 12:45 PM on 10/30/2016. Critical test results PROCEDURE INTERPRETED AT [facility] DEPARTMENT OF RADIOLOGY Final Report Signed by: Dr. Elizabeth Escobedo
[2016-10-30] MEDS ORDERED: AMIODARONE 450 MG/9 ML VIAL IV ONE (13:50)
[2016-10-30] MEDS ORDERED: AMIODARONE 150 MG/3 ML VIAL ONE (13:50)
[2016-10-30] MEDS ORDERED: AMIODARONE INJ 150 MG in DEXTROSE 5% 100 ML IV ONE (13:51)
--- NOTE | 2016-10-30 13:56 | Operative Note ---
Date of procedure: 10/30/16 Pre-op diagnosis: Severe coronary artery disease Post-op diagnosis: same Procedure: 1. [place] of the left internal mammary artery 2. Institution of cardiopulmonary bypass 3. Coronary artery bypass graft left internal mammary artery to left anterior descending artery Findings: The patient had a completely calcified left atrium which is most likely the reason why he has pulmonary hypertension. Calcifications noted on the CAT scan preoperatively were not found in the pericardium the pericardium was all soft. He had decent left anterior descending artery target. His left internal mammary artery was slightly short however it function pretty well. Patient tolerated the procedure well. Details of the procedure The patient was brought into the OR placed supine on the OR table and general endotracheal anesthesia was induced. Antibiotics were given. Timeout was performed. An incision was made on the sternum and a sternotomy was performed. Hemostasis was achieved. I started by exposing the heart and opening the pericardium. The pericardium was soft with no calcified lesions noted. After that I proceeded with placing the left internal mammary artery retractor. The left internal mammary artery was dissected as a pedicled graft in its entirety from the xiphisternum all the way up to the first rib. I then proceeded with placing my cannulation stitch on the distal ascending aorta. I then cannulated the aorta. I then proceeded with cannulating the right atrium with a dual stage cannula. The patient needle was inserted. The mammary was prepped. I then started the patient on cardiopulmonary bypass. Cross-clamp was applied. Cardioplegia was given and heart arrested successfully. I then proceeded with identifying the distal target on the left anterior descending artery. It was around 2 mm in size. Bypass was created between the REYNOSO and LAD in an end-to-side fashion with 7-0 Prolene stitch was performed. I then proceeded with removing the cross-clamp. The heart recovered successfully. I wean the patient from bypass successfully. Hemostasis was achieved. Protamine was given. I decannulated without any problems. Hemostasis was achieved. The sternum was closed using wires. The subcutaneous tissues closed using PDS. The skin was closed using Monocryl. All counts were correct at the end of the procedure. Anesthesia: GETA Surgeon / Physician: Danitza Epperson Estimated blood loss: other (CPB) Tourniquet Time (Minutes): 18 Specimens: none sent Condition: stable Disposition: ICU Results - Labs CBC & BMP: 10/30/16 11:08 10/30/16 11:08 Discharge Plan - Discharge Medications No Action Spironolactone [Spironolactone] 50 mg PO DAILY Nebivolol [Bystolic] 10 mg PO DAILY Furosemide [Furosemide] 20 mg PO DAILY - Follow Up or Referral - Forms/Instructions
[2016-10-30] MEDS ORDERED: AMIODARONE INJ 450 MG in DEXTROSE 5% 241 ML IV SCH ×2 (14:00→17:51)
--- NOTE | 2016-10-30 14:20 | XRay Report ---
XR chest 1V portable Indication: PA line placement. Comparison: Chest x-ray 10/30/2016. Technique: Portable AP chest was performed. Findings: [place] catheter sits with the tip in the right pulmonary artery. Multiple tubes and medical support devices appear stable. Chest demonstrates little change otherwise. Small right-sided pneumothorax is present. Impression: 1. Interval placement of right IJ [place] catheter tip lies in right pulmonary artery outflow. 2. Small right-sided pneumothorax is present, this is stable compared to prior study displacement of the lateral pleural stripe is 12 mm. 3. Otherwise stable chest. Findings of right-sided pneumothorax were discussed with CVR nurse at 1417 hours. 10/30/2016 2:13 PM PROCEDURE INTERPRETED AT [facility] DEPARTMENT OF RADIOLOGY Final Report Signed by: Dr. Pelon Madrigal
[2016-10-30 14:40] LABS: Hematocrit Heart Surgery 29.8 PERCENT (42-52); Hemoglobin Heart Surgery 9.6 G/DL (14.0-18.0); PH Patient Temp Venous 7.384; PO2 Patient Temp Venous 32.2 MM HG; Potassium Heart/CVR 3.6 MMOL/L (3.5-5.1); VBG Base Excess -1.5 MEQ/L (0-4); VBG HCO3 22.5 MEQ/L (24-28); VBG Oxygen Saturation 53.9 %; VBG PH 7.384; VBG PO2 32.2 MMHG (17-40)
[2016-10-30] MEDS: ALBUMIN 5% 12.5 GM in PREMIX 1 EACH IV PRN ×5 (14:40→23:56)
--- NOTE | 2016-10-30 15:08 | Anesthesia Post-Op ---
Anesthesia Post OP - Post Ansesthetic Evaluation Patient seen in post op: Yes Resp: within normal limits CV: within normal limits Mental: within normal limits Temp: within normal limits [id number]: within normal limits Nausea and Vomiting: within normal limits Pain: within normal limits
[2016-10-30 16:41] LABS: ABG Base Excess -3.9 MMOL/L (-2.5-2.5); ABG HCO3 21.2 MMOL/L (20-26); ABG Oxygen Saturation 99.7 % (95-100); ABG PCO2 36.5 MM HG (35-48); ABG PH 7.367 (7.35-7.45); ABG TCO2 19.5 MMOL/L (23-27); Glucose Heart Surgery 143 MG/DL (74-106); Hematocrit Heart Surgery 26.4 PERCENT (42-52); Hemoglobin Heart Surgery 8.5 G/DL (14.0-18.0); Potassium Heart/CVR 3.6 MMOL/L (3.5-5.1)
[2016-10-30] MEDS: CEFUROXIME INJ 1,500 MG in SODIUM CHLORIDE 0.9% 100 ML IV SCH (20:03)
[2016-10-31] MEDS: ALBUMIN 5% 12.5 GM in PREMIX 1 EACH IV PRN ×2 (00:20→10:44)
[2016-10-31] MEDS: SODIUM CHLORIDE 0.45% 1,000 ML IV SCH ×2 (01:55→07:47)
[2016-10-31 05:36] LABS: Basophils % 0.1 % (0.0-0.8); Hematocrit 24.3 VOL% (42.0-52.0); Hemoglobin 8.1 GM/DL (14.0-18.0); Immature Granulocytes % 0.5 %; Immature Granulocytes Absolute 0.05 #; Lymphocytes # 0.4 10*3/uL (1.4-4.0); Lymphocytes % 4.2 % (21.2-54.2); Mean Corpuscular HGB Conc 33.3 GM/DL (32-36); Mean Corpuscular Hemoglobin 34 PG (27-34); Mean Corpuscular Volume 102.5 FL (87-102); Mean Platelet Volume 11.4 FL (9.6-12.0); Monocytes # 0.4 10*3/uL (0.11-0.8); Monocytes % 3.8 % (1.7-12.7); Neutrophils # 8.9 10*3/uL (1.4-7.4); Neutrophils % 91.4 % (38.7-73.9); Red Blood Count 2.37 MC/CUMM (3.8-5.5); Red Cell Distribution Width 15.3 % (9.3-17.3)
[2016-10-31 05:40] LABS: Platelet Count 70 T/CUMM (130-400); White Blood Count 9.7 T/CUMM (4-12)
[2016-10-31 06:21] LABS: Band Neutrophils 1 % (0-10); Giant Platelets Few; Hypochromasia 1+; Lymphocytes 3 % (20-55); Platelet Estimate Decreased; Segmented Neutrophils 91 % (50-85); Total Cells Counted 100
[2016-10-31 06:33] LABS: Calcium 7.4 MG/DL (8.5-10.1); Magnesium 1.7 MG/DL (1.8-2.4); Osmolality,Calculated 283.7 MOS/KG (273-304); Potassium 4.9 MMOL/L (3.5-5.1)
[2016-10-31 06:43] LABS: Risk Ratio 2.86; VLDL CHOLESTEROL 8.4 MG/DL
[2016-10-31] MEDS ORDERED: FUROSEMIDE 40 MG/4 ML VIAL IV ONE ×2 (06:53→10:42)
[2016-10-31] MEDS ORDERED: GLUCAGON 1 MG VIAL IM PRN (07:02)
[2016-10-31] MEDS ORDERED: DEXTROSE 50% 25 GM/50 ML VIAL IV PRN (07:02)
[2016-10-31] MEDS: EZETIMIBE 10 MG TABLET PO SCH (08:31)
[2016-10-31] MEDS: AMIODARONE 200 MG TABLET PO SCH (08:31)
[2016-10-31] MEDS: CLOPIDOGREL 75 MG TABLET PO SCH (08:31)
[2016-10-31] MEDS: INSULIN REGULAR 100 UNIT/ML SUBCUT SCH ×4 (08:36→20:33)
[2016-10-31] MEDS: CHLORHEXIDINE 0.12% ORAL RINSE 60 ML BOTTLE SWISH/SPIT SCH ×2 (08:36→20:33)
--- NOTE | 2016-10-31 08:59 | XRay Report ---
History: Postop thoracotomy. Evaluate for pneumothorax Date: 10/31/2016 Study: Chest x-ray AP portable Comparison exam: 10/30/2016 The endotracheal and nasogastric tubes have been removed. The right IJ [place] catheter is positioned with its tip over the distal aspect of the main right pulmonary artery. Chest drainage tubes overlie the mediastinum and lower left hemithorax. There is miniscule 1% pneumothorax on the right which is improved compared to the previous study. There is mild cardiomegaly. The mediastinal contours are stable. There is stable platelike scar or subsegmental atelectasis in the right lung base. There is mild right-sided pleural effusion. Osseous structures are unchanged. Impression: Miniscule right apical pneumothorax. The right pneumothorax has improved since the previous study. Interval extubation and nasogastric tube removal. Continued platelike scar with some mild superimposed subsegmental atelectasis in the right lung base PROCEDURE INTERPRETED AT [facility] DEPARTMENT OF RADIOLOGY Final Report Signed by: Dr. Elva Yap
[2016-10-31] MEDS: CEFUROXIME INJ 1,500 MG in SODIUM CHLORIDE 0.9% 100 ML IV SCH ×2 (09:51→20:33)
[2016-10-31] MEDS: FUROSEMIDE 40 MG TABLET PO SCH (09:55)
[2016-10-31] MEDS: ASPIRIN EC 325 MG TABLET PO SCH (09:55)
[2016-10-31] MEDS ORDERED: ATORVASTATIN 40 MG TABLET PO SCH (10:25)
[2016-10-31] MEDS ORDERED: HEPARIN/NACL 0.9% 2 UNITS/ML 500 ML IV ONE (11:57)
--- NOTE | 2016-10-31 12:01 | Cardiology Progress Note ---
<Jackie Spear E - Last Filed: 10/31/16 11:56> Assessment and Plan - Time spent with patient Time spent with patient: Greater than 30 minutes Time spent discussing smoking cessation with patient: 3 to 10 minutes (1) S/P CABG x 1 Status: Acute Assessment and plan: SEE PLAN OF CARE LISTED BELOW Current Visit: Yes (2) Hypertension Status: Chronic Assessment and plan: SEE PLAN OF CARE LISTED BELOW Current Visit: Yes (3) Dyslipidemia Status: Chronic Assessment and plan: SEE PLAN OF CARE LISTED BELOW Current Visit: Yes (4) Atrial fibrillation Status: Chronic Assessment and plan: SEE PLAN OF CARE LISTED BELOW Current Visit: Yes Qualifiers: Atrial fibrillation type: persistent Qualified Code(s): I48.1 - Persistent atrial fibrillation (5) Cirrhosis of liver Status: Chronic Assessment and plan: SEE PLAN OF CARE LISTED BELOW Current Visit: Yes (6) Liver failure Status: Chronic Assessment and plan: SEE PLAN OF CARE LISTED BELOW Current Visit: Yes (7) COPD (chronic obstructive pulmonary disease) Status: Acute Current Visit: Yes (8) Tobacco abuse Status: Chronic Assessment and plan: SEE PLAN OF CARE LISTED BELOW Current Visit: Yes (9) Anemia Status: Acute Assessment and plan: SEE PLAN OF CARE LISTED BELOW Current Visit: Yes (10) Coronary artery disease Status: Chronic Assessment and plan: SEE PLAN OF CARE LISTED BELOW Current Visit: Yes Qualifiers: Coronary Disease-Associated Artery/Lesion type: [place] artery [place] vs. transplanted heart: [place] heart Associated angina: without angina Qualified Code(s): I25.10 - Atherosclerotic heart disease of [place] coronary artery without angina pectoris (11) CKD (chronic kidney disease) stage 3, GFR 30-59 ml/min Status: Chronic Assessment and plan: SEE PLAN OF CARE LISTED BELOW Current Visit: Yes (12) Left atrial thrombus Status: Chronic Assessment and plan: SEE PLAN OF CARE LISTED BELOW Current Visit: Yes (13) Pericardial calcification Status: Chronic Assessment and plan: SEE PLAN OF CARE LISTED BELOW Current Visit: Yes Cardiology - PN: Subj Interval history: FIELD NURSE CASE MANAGER: DR. FRANCO ([place]) [facility] SCOTT [facility] Patient is being seen in the cardiovascular recovery unit Mr. Chacon, 61WM, with risk factors significant for: known severe multivessel coronary artery disease, hypertension, dyslipidemia, diabetes, CVA, tobaccoism. History of chronic atrial fibrillation, decompensated liver failure, alcoholic liver cirrhosis, renal failure, severe COPD. He is followed by Dr. Nava, [facility] at [place]. Patient underwent cardiac catheterization at [facility] was found to have severe multivessel coronary artery disease, calcified pericardium. Recent echocardiogram revealed: EF 55%, grade 1 diastolic dysfunction, PA P 60-65 mmHg, left atrial thrombi. He was previously on anticoagulation (unknown agent) and this was held prior to surgery. Patient was transferred to [facility] October 28, 2016 for elective CABG and possible pericardiotomy. OCTOBER 30, 2016: This morning, patient underwent CABG 1 (REYNOSO to LAD). He did not require pericardiotomy. He tolerated the procedure well and is currently in a recovery unit. Extubated, following commands appropriately with little chest tube output. He is currently in atrial fibrillation, rate controlled. IV Amiodarone was initiated this afternoon. Labs are stable at this point. Obviously, he is anemic as expected. Creatinine is improved to 1.6 from admission creatinine of 2.0. He is off all pressors and only on IV insulin. Continue Aspirin. Avoiding statin drugs due to his history of hepatic failure, alcoholic cirrhosis. Will add Zetia instead. Beta-margaret when stable. May avoid KLEBER inhibitor for fear of worsening renal insufficiency. Incentive spirometry has been encouraged. Cardiac rehab consulted. Will further discuss with Dr. Scott and await additional recommendations. 2016: POD 1 CABG x 1 (RYENOSO- LAD). Overnight, Mr. Chacon is doing great. He sitting up in the bedside chair. He is progressing nicely. Complains of soreness but in general he is thankful he is improving. Chest tubes have minimal output. Labs are stable. Pressure will not allow for introduction of beta-margaret. Avoiding KLEBER inhibitor for fear of worsening his renal insufficiency. Platelet count is 70. Continue to follow his anemia and his thrombocytopenia daily. Appears to be stable. Patient did acknowledge that in the past he was taking warfarin however, this was discontinued given his multiple comorbidities. Will further discuss with Dr. Quiroz and await additional recommendations. ASSESSMENT/PLAN: 1. CAD S/P CABG (REYNOSO- LAD) - POD 1. Doing great! Continue Aspirin. 2. HYPERTENSION - stable at this time. Beta-blockade when able. Avoiding KLEBER inhibitor for fear of worsening renal insufficiency 3. DYSLIPIDEMIA - will avoid lipid-lowering agents due to his history of cirrhosis of the liver, liver failure. Added Zetia instead. LDL 63 4. PERICARDIAL CALCIFICATION - originally thought he would need a pericardiotomy. Did not require such during open chest procedure 5. TOBACCOISM - greater than 5 minutes was spent discussing the merits of tobacco cessation 6. CHRONIC KIDNEY DISEASE, STAGE III - monitor creatinine daily. Slightly improved since admission. Will not be eligible for KLEBER/ARB 7. COMPENSATED LIVER FAILURE - followed by Dr. Nava at [place]. Avoiding statin drug and other hepatotoxic medicines 8. ALCOHOLIC LIVER CIRRHOSIS - followed by Dr. Heaton in [place]. Avoiding statin drugs and other hepatotoxic medications 9. COPD, SEVERE - pulmonary toilet, incentive spirometry 10. HISTORY OF CVA - several years ago suffered CVA. Continue current plan of care. Currently on Aspirin. 11. ANEMIA - as expected post CABG. Continue to follow closely. Daily monitoring of labs 12. ATRIAL FIB, CHRONIC - according to the notes we have from [facility], he has chronic atrial fibrillation. Previously, reports taking Warfarin however this was stopped due to his multiple comorbidities. 13. LEFT ATRIAL THROMBUS - continue ASA Exam (Progress Note) - Constitutional Vitals: Period Temp Pulse Resp BP Sys/[place] Pulse Ox Last 24 Hr 96.0 F-98.2 F 58-112 11-22 84-124/27-77 99-100 Exam: General: [Appears well with no apparent distress.] [Pleasant and cooperative. ] [Appears comfortable.] HEENT: [PERRL, normocephalic, atraumatic. Mucous membranes moist. No jaundice noted. Conjunctiva moist and clear, sclerae anicteric] Neck: No obvious JVD/HJR, no thyromegaly or lymphadenopathy noted. No carotid bruit appreciated Cardiac: [Irregularly irregular rhythm, controlled rate] [Soft cardiac rub. Lungs: [Clear to auscultation without accessory muscle use to assist the respiratory pattern.] Oxygen in use via nasal cannula. Chest tubes intact with minimal output Abdomen: Soft, bowel sounds normoactive. Nontender and nondistended. No abdominal bruit or thrill noted. No masses noted. Musculoskeletal: No fluid collection. Decreased range of motion is noted. Extremities: No clubbing, cyanosis noted. [ No edema noted.] Upper extremity pulses 2+. Lower extremity pulses 2+. Capillary refill less than 3 seconds. Skin: No unusual lesions or rashes. No skin breakdown appreciated. Neuro: Awake, alert and oriented 3. Moves all extremities well without hemiparesis or paralysis. No essential tremor is appreciated. Result/EKG - Labs CBC & BMP: 10/31/16 05:15 10/31/16 05:13 Lab Results: I have reviewed the past 24 hour labs Labs: Laboratory Results - last 24 hr 10/29/16 10/30/16 10/30/16 04:15 11:01 11:08 WBC RBC Hgb Hct MCV MCH MCHC RDW Plt Count MPV Neut % (Auto) Lymph % (Auto) Darke % (Auto) Eos % (Auto) Baso % (Auto) Neut # (Auto) Lymph # (Auto) Darke # (Auto) Eos # (Auto) Baso # (Auto) Total Counted Immature Gran % Nucleated RBC % Immature Gran # Segmented Neutrophils Band Neutrophils Lymphocytes Monocytes Nucleated RBCs # Platelet Estimate Decreased Giant Platelets Few Immature Plt Fraction Hypochromasia 1+ Ovalocytes Slight Morphology Comment Patient Temperature ABG pH ABG pH at Pt Temp ABG pCO2 ABG pCO2 at Pt Temp ABG pO2 ABG pO2 at Pt Temp ABG HCO3 ABG Total CO2 ABG O2 Saturation ABG Base Excess ABG Sodium VBG pH VBG pCO2 VBG pO2 VBG HCO3 VBG Total CO2 VBG O2 Saturation VBG Base Excess Hemoglobin Hematocrit FiO2 Sodium Potassium Chloride Carbon Dioxide Anion Gap BUN Creatinine GFR Calculation BUN/Creatinine Ratio Glucose POC Glucose 181 H Calculated Osmolality Calcium Venous Ioniz Calcium Magnesium Triglycerides Cholesterol LDL Cholesterol VLDL Cholesterol HDL Cholesterol Heart Disease Risk Ratio Crossmatch See Detail 10/30/16 10/30/16 10/30/16 11:08 12:14 13:05 WBC RBC Hgb Hct MCV MCH MCHC RDW Plt Count MPV Neut % (Auto) Lymph % (Auto) Darke % (Auto) Eos % (Auto) Baso % (Auto) Neut # (Auto) Lymph # (Auto) Darke # (Auto) Eos # (Auto) Baso # (Auto) Total Counted Immature Gran % Nucleated RBC % Immature Gran # Segmented Neutrophils Band Neutrophils Lymphocytes Monocytes Nucleated RBCs # Platelet Estimate Giant Platelets Immature Plt Fraction Hypochromasia Ovalocytes Morphology Comment Patient Temperature ABG pH ABG pH at Pt Temp ABG pCO2 ABG pCO2 at Pt Temp ABG pO2 ABG pO2 at Pt Temp ABG HCO3 ABG Total CO2 ABG O2 Saturation ABG Base Excess ABG Sodium VBG pH VBG pCO2 VBG pO2 VBG HCO3 VBG Total CO2 VBG O2 Saturation VBG Base Excess Hemoglobin Hematocrit FiO2 Sodium 136 Potassium 4.0 Chloride 102 Carbon Dioxide 24 Anion Gap 14.0 BUN 31 H Creatinine 1.60 H GFR Calculation 46 BUN/Creatinine Ratio 19.00 Glucose 161 H POC Glucose 135 H 104 Calculated Osmolality 281.0 Calcium 8.5 Venous Ioniz Calcium Magnesium 1.9 Triglycerides Cholesterol LDL Cholesterol VLDL Cholesterol HDL Cholesterol Heart Disease Risk Ratio Crossmatch 10/30/16 10/30/16 10/30/16 14:21 14:35 15:45 WBC RBC Hgb Hct MCV MCH MCHC RDW Plt Count MPV Neut % (Auto) Lymph % (Auto) Darke % (Auto) Eos % (Auto) Baso % (Auto) Neut # (Auto) Lymph # (Auto) Darke # (Auto) Eos # (Auto) Baso # (Auto) Total Counted Immature Gran % Nucleated RBC % Immature Gran # Segmented Neutrophils Band Neutrophils Lymphocytes Monocytes Nucleated RBCs # Platelet Estimate Giant Platelets Immature Plt Fraction Hypochromasia Ovalocytes Morphology Comment Patient Temperature 37 ABG pH ABG pH at Pt Temp 7.384 ABG pCO2 ABG pCO2 at Pt Temp 39.0 ABG pO2 ABG pO2 at Pt Temp 32.2 ABG HCO3 ABG Total CO2 ABG O2 Saturation ABG Base Excess ABG Sodium 138 VBG pH 7.384 VBG pCO2 39.0 L VBG pO2 32.2 VBG HCO3 22.5 L VBG Total CO2 21.5 VBG O2 Saturation 53.9 VBG Base Excess -1.5 L Hemoglobin 9.6 L Hematocrit 29.8 L FiO2 21.00 Sodium Potassium 3.6 Chloride Carbon Dioxide Anion Gap BUN Creatinine GFR Calculation BUN/Creatinine Ratio Glucose 148 H POC Glucose 132 H 148 H Calculated Osmolality Calcium Venous Ioniz Calcium 1.12 L Magnesium Triglycerides Cholesterol LDL Cholesterol VLDL Cholesterol HDL Cholesterol Heart Disease Risk Ratio Crossmatch 10/30/16 10/30/16 10/30/16 16:32 17:13 18:18 WBC RBC Hgb Hct MCV MCH MCHC RDW Plt Count MPV Neut % (Auto) Lymph % (Auto) [place] % (Auto) Eos % (Auto) Baso % (Auto) Neut # (Auto) Lymph # (Auto) [place] # (Auto) Eos # (Auto) Baso # (Auto) Total Counted Immature Gran % Nucleated RBC % Immature Gran # Segmented Neutrophils Band Neutrophils Lymphocytes Monocytes Nucleated RBCs # Platelet Estimate Giant Platelets Immature Plt Fraction Hypochromasia Ovalocytes Morphology Comment Patient Temperature ABG pH 7.367 ABG pH at Pt Temp ABG pCO2 36.5 ABG pCO2 at Pt Temp ABG pO2 186.0 H ABG pO2 at Pt Temp ABG HCO3 21.2 ABG Total CO2 19.5 L ABG O2 Saturation 99.7 ABG Base Excess -3.9 L ABG Sodium VBG pH VBG pCO2 VBG pO2 VBG HCO3 VBG Total CO2 VBG O2 Saturation VBG Base Excess Hemoglobin 8.5 L Hematocrit 26.4 L FiO2 Sodium Potassium 3.6 Chloride Carbon Dioxide Anion Gap BUN Creatinine GFR Calculation BUN/Creatinine Ratio Glucose 143 H POC Glucose 136 H 137 H Calculated Osmolality Calcium Venous Ioniz Calcium Magnesium Triglycerides Cholesterol LDL Cholesterol VLDL Cholesterol HDL Cholesterol Heart Disease Risk Ratio Crossmatch 10/30/16 10/30/16 10/30/16 19:07 20:01 21:06 WBC RBC Hgb Hct MCV MCH MCHC RDW Plt Count MPV Neut % (Auto) Lymph % (Auto) [place] % (Auto) Eos % (Auto) Baso % (Auto) Neut # (Auto) Lymph # (Auto) [place]ke # (Auto) Eos # (Auto) Baso # (Auto) Total Counted Immature Gran % Nucleated RBC % Immature Gran # Segmented Neutrophils Band Neutrophils Lymphocytes Monocytes Nucleated RBCs # Platelet Estimate Giant Platelets Immature Plt Fraction Hypochromasia Ovalocytes Morphology Comment Patient Temperature ABG pH ABG pH at Pt Temp ABG pCO2 ABG pCO2 at Pt Temp ABG pO2 ABG pO2 at Pt Temp ABG HCO3 ABG Total CO2 ABG O2 Saturation ABG Base Excess ABG Sodium VBG pH VBG pCO2 VBG pO2 VBG HCO3 VBG Total CO2 VBG O2 Saturation VBG Base Excess Hemoglobin Hematocrit FiO2 Sodium Potassium Chloride Carbon Dioxide Anion Gap BUN Creatinine GFR Calculation BUN/Creatinine Ratio Glucose POC Glucose 130 H 131 H 117 H Calculated Osmolality Calcium Venous Ioniz Calcium Magnesium Triglycerides Cholesterol LDL Cholesterol VLDL Cholesterol HDL Cholesterol Heart Disease Risk Ratio Crossmatch 10/30/16 10/30/16 10/30/16 22:14 23:19 23:57 WBC RBC Hgb Hct MCV MCH MCHC RDW Plt Count MPV Neut % (Auto) Lymph % (Auto) [place] % (Auto) Eos % (Auto) Baso % (Auto) Neut # (Auto) Lymph # (Auto) [place] # (Auto) Eos # (Auto) Baso # (Auto) Total Counted Immature Gran % Nucleated RBC % Immature Gran # Segmented Neutrophils Band Neutrophils Lymphocytes Monocytes Nucleated RBCs # Platelet Estimate Giant Platelets Immature Plt Fraction Hypochromasia Ovalocytes Morphology Comment Patient Temperature ABG pH ABG pH at Pt Temp ABG pCO2 ABG pCO2 at Pt Temp ABG pO2 ABG pO2 at Pt Temp ABG HCO3 ABG Total CO2 ABG O2 Saturation ABG Base Excess ABG Sodium VBG pH VBG pCO2 VBG pO2 VBG HCO3 VBG Total CO2 VBG O2 Saturation VBG Base Excess Hemoglobin Hematocrit FiO2 Sodium Potassium Chloride Carbon Dioxide Anion Gap BUN Creatinine GFR Calculation BUN/Creatinine Ratio Glucose POC Glucose 107 H 110 H 110 H Calculated Osmolality Calcium Venous Ioniz Calcium Magnesium Triglycerides Cholesterol LDL Cholesterol VLDL Cholesterol HDL Cholesterol Heart Disease Risk Ratio Crossmatch 10/31/16 10/31/16 10/31/16 01:20 03:19 05:13 WBC RBC Hgb Hct MCV MCH MCHC RDW Plt Count MPV Neut % (Auto) Lymph % (Auto) [place] % (Auto) Eos % (Auto) Baso % (Auto) Neut # (Auto) Lymph # (Auto) [place] # (Auto) Eos # (Auto) Baso # (Auto) Total Counted Immature Gran % Nucleated RBC % Immature Gran # Segmented Neutrophils Band Neutrophils Lymphocytes Monocytes Nucleated RBCs # Platelet Estimate Giant Platelets Immature Plt Fraction Hypochromasia Ovalocytes Morphology Comment Patient Temperature ABG pH ABG pH at Pt Temp ABG pCO2 ABG pCO2 at Pt Temp ABG pO2 ABG pO2 at Pt Temp ABG HCO3 ABG Total CO2 ABG O2 Saturation ABG Base Excess ABG Sodium VBG pH VBG pCO2 VBG pO2 VBG HCO3 VBG Total CO2 VBG O2 Saturation VBG Base Excess Hemoglobin Hematocrit FiO2 Sodium 138 Potassium 4.9 Chloride 108 H Carbon Dioxide 18 L Anion Gap 16.9 H BUN 36 H Creatinine 1.80 H GFR Calculation 40 BUN/Creatinine Ratio 20.00 Glucose 117 H POC Glucose 98 114 H Calculated Osmolality 283.7 Calcium 7.4 L Venous Ioniz Calcium Magnesium 1.7 L Triglycerides Cholesterol LDL Cholesterol VLDL Cholesterol HDL Cholesterol Heart Disease Risk Ratio Crossmatch 10/31/16 10/31/16 10/31/16 05:13 05:15 05:28 WBC 9.7 D RBC 2.37 L Hgb 8.1 L Hct 24.3 L MCV 102.5 H MCH 34 MCHC 33.3 RDW 15.3 Plt Count 70 L D MPV 11.4 Neut % (Auto) 91.4 H Lymph % (Auto) 4.2 L Darke % (Auto) 3.8 Eos % (Auto) 0.0 Baso % (Auto) 0.1 Neut # (Auto) 8.9 H Lymph # (Auto) 0.4 L Darke # (Auto) 0.4 Eos # (Auto) 0.0 Baso # (Auto) 0.0 Total Counted 100 Immature Gran % 0.5 Nucleated RBC % 0.0 Immature Gran # 0.05 Segmented Neutrophils 91 H Band Neutrophils 1 Lymphocytes 3 L Monocytes 5 Nucleated RBCs # 0.00 Platelet Estimate Decreased Giant Platelets Few Immature Plt Fraction 0.0 Hypochromasia 1+ Ovalocytes Morphology Comment Patient Temperature ABG pH ABG pH at Pt Temp ABG pCO2 ABG pCO2 at Pt Temp ABG pO2 ABG pO2 at Pt Temp ABG HCO3 ABG Total CO2 ABG O2 Saturation ABG Base Excess ABG Sodium VBG pH VBG pCO2 VBG pO2 VBG HCO3 VBG Total CO2 VBG O2 Saturation VBG Base Excess Hemoglobin Hematocrit FiO2 Sodium Potassium Chloride Carbon Dioxide Anion Gap BUN Creatinine GFR Calculation BUN/Creatinine Ratio Glucose POC Glucose 128 H Calculated Osmolality Calcium Venous Ioniz Calcium Magnesium Triglycerides 42 Cholesterol 106 LDL Cholesterol 63.0 VLDL Cholesterol 8.4 HDL Cholesterol 37 L Heart Disease Risk Ratio 2.86 Crossmatch 10/31/16 10/31/16 10/31/16 06:05 06:07 07:52 WBC RBC Hgb Hct MCV MCH MCHC RDW Plt Count MPV Neut % (Auto) Lymph % (Auto) [place] % (Auto) Eos % (Auto) Baso % (Auto) Neut # (Auto) Lymph # (Auto) [place] # (Auto) Eos # (Auto) Baso # (Auto) Total Counted Immature Gran % Nucleated RBC % Immature Gran # Segmented Neutrophils Band Neutrophils Lymphocytes Monocytes Nucleated RBCs # Platelet Estimate Giant Platelets Immature Plt Fraction Hypochromasia Ovalocytes Morphology Comment Patient Temperature ABG pH ABG pH at Pt Temp ABG pCO2 ABG pCO2 at Pt Temp ABG pO2 ABG pO2 at Pt Temp ABG HCO3 ABG Total CO2 ABG O2 Saturation ABG Base Excess ABG Sodium VBG pH VBG pCO2 VBG pO2 VBG HCO3 VBG Total CO2 VBG O2 Saturation VBG Base Excess Hemoglobin Hematocrit FiO2 Sodium Potassium Chloride Carbon Dioxide Anion Gap BUN Creatinine GFR Calculation BUN/Creatinine Ratio Glucose POC Glucose < 20 L* 135 H 89 Calculated Osmolality Calcium Venous Ioniz Calcium Magnesium Triglycerides Cholesterol LDL Cholesterol VLDL Cholesterol HDL Cholesterol Heart Disease Risk Ratio Crossmatch 10/31/16 11:43 WBC RBC Hgb Hct MCV MCH MCHC RDW Plt Count MPV Neut % (Auto) Lymph % (Auto) [place] % (Auto) Eos % (Auto) Baso % (Auto) Neut # (Auto) Lymph # (Auto) [place]ke # (Auto) Eos # (Auto) Baso # (Auto) Total Counted Immature Gran % Nucleated RBC % Immature Gran # Segmented Neutrophils Band Neutrophils Lymphocytes Monocytes Nucleated RBCs # Platelet Estimate Giant Platelets Immature Plt Fraction Hypochromasia Ovalocytes Morphology Comment Patient Temperature ABG pH ABG pH at Pt Temp ABG pCO2 ABG pCO2 at Pt Temp ABG pO2 ABG pO2 at Pt Temp ABG HCO3 ABG Total CO2 ABG O2 Saturation ABG Base Excess ABG Sodium VBG pH VBG pCO2 VBG pO2 VBG HCO3 VBG Total CO2 VBG O2 Saturation VBG Base Excess Hemoglobin Hematocrit FiO2 Sodium Potassium Chloride Carbon Dioxide Anion Gap BUN Creatinine GFR Calculation BUN/Creatinine Ratio Glucose POC Glucose 233 H Calculated Osmolality Calcium Venous Ioniz Calcium Magnesium Triglycerides Cholesterol LDL Cholesterol VLDL Cholesterol HDL Cholesterol Heart Disease Risk Ratio Crossmatch - Diagnostic Findings Procedure: Chest x-ray: report reviewed by me - EKG EKG results: interpreted by md EKG shows: atrial fibrillation Quality Measures - VTE Contraindication to Pharmacological VTE Prophylaxis: Active Bleeding <James Quiroz - Last Filed: 10/31/16 13:05> Cardiology - PN: Subj Interval history: Cardiology addendum Patient examined chart reviewed and discussed with nurse Jackie ruano. Postop day #1 REYNOSO graft to LAD. Preop EF 50-55% by echo Telemetry shows controlled atrial fib O2 sat 98% on room air Blood pressure 100/64 Irregular rhythm no murmur Decreased breath sounds rhonchi in the right base Incision looks good Abdomen benign Creatinine today is down to 1.6 Plan Routine postop care Patient will need anticoagulation. Chronic atrial fib, history of stroke, moderate dilated left atrium and left atrial thrombus adherent to posterior wall Exam (Progress Note) - Constitutional Vitals: Period Temp Pulse Resp BP Sys/[place] Pulse Ox Last 24 Hr 96.0 F-98.2 F 58-112 11-22 84-115/27-75 99-100 Result/EKG - Labs CBC & BMP: 10/31/16 05:15 10/31/16 05:13 Labs: Laboratory Results - last 24 hr 10/29/16 10/30/16 10/30/16 04:15 11:01 12:14 WBC RBC Hgb Hct MCV MCH MCHC RDW Plt Count MPV Neut % (Auto) Lymph % (Auto) [place]ke % (Auto) Eos % (Auto) Baso % (Auto) Neut # (Auto) Lymph # (Auto) Darke # (Auto) Eos # (Auto) Baso # (Auto) Total Counted Immature Gran % Nucleated RBC % Immature Gran # Segmented Neutrophils Band Neutrophils Lymphocytes Monocytes Nucleated RBCs # Platelet Estimate Giant Platelets Immature Plt Fraction Hypochromasia Morphology Comment Patient Temperature ABG pH ABG pH at Pt Temp ABG pCO2 ABG pCO2 at Pt Temp ABG pO2 ABG pO2 at Pt Temp ABG HCO3 ABG Total CO2 ABG O2 Saturation ABG Base Excess ABG Sodium VBG pH VBG pCO2 VBG pO2 VBG HCO3 VBG Total CO2 VBG O2 Saturation VBG Base Excess Hemoglobin Hematocrit Potassium Glucose FiO2 Sodium Chloride Carbon Dioxide Anion Gap BUN Creatinine GFR Calculation BUN/Creatinine Ratio POC Glucose 181 H 135 H Calculated Osmolality Calcium Venous Ioniz Calcium Magnesium Triglycerides Cholesterol LDL Cholesterol VLDL Cholesterol HDL Cholesterol Heart Disease Risk Ratio Crossmatch See Detail 10/30/16 10/30/16 10/30/16 13:05 14:21 14:35 WBC RBC Hgb Hct MCV MCH MCHC RDW Plt Count MPV Neut % (Auto) Lymph % (Auto) Darke % (Auto) Eos % (Auto) Baso % (Auto) Neut # (Auto) Lymph # (Auto) Darke # (Auto) Eos # (Auto) Baso # (Auto) Total Counted Immature Gran % Nucleated RBC % Immature Gran # Segmented Neutrophils Band Neutrophils Lymphocytes Monocytes Nucleated RBCs # Platelet Estimate Giant Platelets Immature Plt Fraction Hypochromasia Morphology Comment Patient Temperature 37 ABG pH ABG pH at Pt Temp 7.384 ABG pCO2 ABG pCO2 at Pt Temp 39.0 ABG pO2 ABG pO2 at Pt Temp 32.2 ABG HCO3 ABG Total CO2 ABG O2 Saturation ABG Base Excess ABG Sodium 138 VBG pH 7.384 VBG pCO2 39.0 L VBG pO2 32.2 VBG HCO3 22.5 L VBG Total CO2 21.5 VBG O2 Saturation 53.9 VBG Base Excess -1.5 L Hemoglobin 9.6 L Hematocrit 29.8 L Potassium 3.6 Glucose 148 H FiO2 21.00 Sodium Chloride Carbon Dioxide Anion Gap BUN Creatinine GFR Calculation BUN/Creatinine Ratio POC Glucose 104 132 H Calculated Osmolality Calcium Venous Ioniz Calcium 1.12 L Magnesium Triglycerides Cholesterol LDL Cholesterol VLDL Cholesterol HDL Cholesterol Heart Disease Risk Ratio Crossmatch 10/30/16 10/30/16 10/30/16 15:45 16:32 17:13 WBC RBC Hgb Hct MCV MCH MCHC RDW Plt Count MPV Neut % (Auto) Lymph % (Auto) Darke % (Auto) Eos % (Auto) Baso % (Auto) Neut # (Auto) Lymph # (Auto) Darke # (Auto) Eos # (Auto) Baso # (Auto) Total Counted Immature Gran % Nucleated RBC % Immature Gran # Segmented Neutrophils Band Neutrophils Lymphocytes Monocytes Nucleated RBCs # Platelet Estimate Giant Platelets Immature Plt Fraction Hypochromasia Morphology Comment Patient Temperature ABG pH 7.367 ABG pH at Pt Temp ABG pCO2 36.5 ABG pCO2 at Pt Temp ABG pO2 186.0 H ABG pO2 at Pt Temp ABG HCO3 21.2 ABG Total CO2 19.5 L ABG O2 Saturation 99.7 ABG Base Excess -3.9 L ABG Sodium VBG pH VBG pCO2 VBG pO2 VBG HCO3 VBG Total CO2 VBG O2 Saturation VBG Base Excess Hemoglobin 8.5 L Hematocrit 26.4 L Potassium 3.6 Glucose 143 H FiO2 Sodium Chloride Carbon Dioxide Anion Gap BUN Creatinine GFR Calculation BUN/Creatinine Ratio POC Glucose 148 H 136 H Calculated Osmolality Calcium Venous Ioniz Calcium Magnesium Triglycerides Cholesterol LDL Cholesterol VLDL Cholesterol HDL Cholesterol Heart Disease Risk Ratio Crossmatch 10/30/16 10/30/16 10/30/16 18:18 19:07 20:01 WBC RBC Hgb Hct MCV MCH MCHC RDW Plt Count MPV Neut % (Auto) Lymph % (Auto) Darke % (Auto) Eos % (Auto) Baso % (Auto) Neut # (Auto) Lymph # (Auto) Darke # (Auto) Eos # (Auto) Baso # (Auto) Total Counted Immature Gran % Nucleated RBC % Immature Gran # Segmented Neutrophils Band Neutrophils Lymphocytes Monocytes Nucleated RBCs # Platelet Estimate Giant Platelets Immature Plt Fraction Hypochromasia Morphology Comment Patient Temperature ABG pH ABG pH at Pt Temp ABG pCO2 ABG pCO2 at Pt Temp ABG pO2 ABG pO2 at Pt Temp ABG HCO3 ABG Total CO2 ABG O2 Saturation ABG Base Excess ABG Sodium VBG pH VBG pCO2 VBG pO2 VBG HCO3 VBG Total CO2 VBG O2 Saturation VBG Base Excess Hemoglobin Hematocrit Potassium Glucose FiO2 Sodium Chloride Carbon Dioxide Anion Gap BUN Creatinine GFR Calculation BUN/Creatinine Ratio POC Glucose 137 H 130 H 131 H Calculated Osmolality Calcium Venous Ioniz Calcium Magnesium Triglycerides Cholesterol LDL Cholesterol VLDL Cholesterol HDL Cholesterol Heart Disease Risk Ratio Crossmatch 10/30/16 10/30/16 10/30/16 21:06 22:14 23:19 WBC RBC Hgb Hct MCV MCH MCHC RDW Plt Count MPV Neut % (Auto) Lymph % (Auto) [place] % (Auto) Eos % (Auto) Baso % (Auto) Neut # (Auto) Lymph # (Auto) [place] # (Auto) Eos # (Auto) Baso # (Auto) Total Counted Immature Gran % Nucleated RBC % Immature Gran # Segmented Neutrophils Band Neutrophils Lymphocytes Monocytes Nucleated RBCs # Platelet Estimate Giant Platelets Immature Plt Fraction Hypochromasia Morphology Comment Patient Temperature ABG pH ABG pH at Pt Temp ABG pCO2 ABG pCO2 at Pt Temp ABG pO2 ABG pO2 at Pt Temp ABG HCO3 ABG Total CO2 ABG O2 Saturation ABG Base Excess ABG Sodium VBG pH VBG pCO2 VBG pO2 VBG HCO3 VBG Total CO2 VBG O2 Saturation VBG Base Excess Hemoglobin Hematocrit Potassium Glucose FiO2 Sodium Chloride Carbon Dioxide Anion Gap BUN Creatinine GFR Calculation BUN/Creatinine Ratio POC Glucose 117 H 107 H 110 H Calculated Osmolality Calcium Venous [place]iz Calcium Magnesium Triglycerides Cholesterol LDL Cholesterol VLDL Cholesterol HDL Cholesterol Heart Disease Risk Ratio Crossmatch 10/30/16 10/31/16 10/31/16 23:57 01:20 03:19 WBC RBC Hgb Hct MCV MCH MCHC RDW Plt Count MPV Neut % (Auto) Lymph % (Auto) [place] % (Auto) Eos % (Auto) Baso % (Auto) Neut # (Auto) Lymph # (Auto) [place] # (Auto) Eos # (Auto) Baso # (Auto) Total Counted Immature Gran % Nucleated RBC % Immature Gran # Segmented Neutrophils Band Neutrophils Lymphocytes Monocytes Nucleated RBCs # Platelet Estimate Giant Platelets Immature Plt Fraction Hypochromasia Morphology Comment Patient Temperature ABG pH ABG pH at Pt Temp ABG pCO2 ABG pCO2 at Pt Temp ABG pO2 ABG pO2 at Pt Temp ABG HCO3 ABG Total CO2 ABG O2 Saturation ABG Base Excess ABG Sodium VBG pH VBG pCO2 VBG pO2 VBG HCO3 VBG Total CO2 VBG O2 Saturation VBG Base Excess Hemoglobin Hematocrit Potassium Glucose FiO2 Sodium Chloride Carbon Dioxide Anion Gap BUN Creatinine GFR Calculation BUN/Creatinine Ratio POC Glucose 110 H 98 114 H Calculated Osmolality Calcium Venous [place]iz Calcium Magnesium Triglycerides Cholesterol LDL Cholesterol VLDL Cholesterol HDL Cholesterol Heart Disease Risk Ratio Crossmatch 10/31/16 10/31/16 10/31/16 05:13 05:13 05:15 WBC 9.7 D RBC 2.37 L Hgb 8.1 L Hct 24.3 L MCV 102.5 H MCH 34 MCHC 33.3 RDW 15.3 Plt Count 70 L D MPV 11.4 Neut % (Auto) 91.4 H Lymph % (Auto) 4.2 L [place] % (Auto) 3.8 Eos % (Auto) 0.0 Baso % (Auto) 0.1 Neut # (Auto) 8.9 H Lymph # (Auto) 0.4 L [place] # (Auto) 0.4 Eos # (Auto) 0.0 Baso # (Auto) 0.0 Total Counted 100 Immature Gran % 0.5 Nucleated RBC % 0.0 Immature Gran # 0.05 Segmented Neutrophils 91 H Band Neutrophils 1 Lymphocytes 3 L Monocytes 5 Nucleated RBCs # 0.00 Platelet Estimate Decreased Giant Platelets Few Immature Plt Fraction 0.0 Hypochromasia 1+ Morphology Comment Patient Temperature ABG pH ABG pH at Pt Temp ABG pCO2 ABG pCO2 at Pt Temp ABG pO2 ABG pO2 at Pt Temp ABG HCO3 ABG Total CO2 ABG O2 Saturation ABG Base Excess ABG Sodium VBG pH VBG pCO2 VBG pO2 VBG HCO3 VBG Total CO2 VBG O2 Saturation VBG Base Excess Hemoglobin Hematocrit Potassium 4.9 Glucose 117 H FiO2 Sodium 138 Chloride 108 H Carbon Dioxide 18 L Anion Gap 16.9 H BUN 36 H Creatinine 1.80 H GFR Calculation 40 BUN/Creatinine Ratio 20.00 POC Glucose Calculated Osmolality 283.7 Calcium 7.4 L Venous Ioniz Calcium Magnesium 1.7 L Triglycerides 42 Cholesterol 106 LDL Cholesterol 63.0 VLDL Cholesterol 8.4 HDL Cholesterol 37 L Heart Disease Risk Ratio 2.86 Crossmatch 10/31/16 10/31/16 10/31/16 05:28 06:05 06:07 WBC RBC Hgb Hct MCV MCH MCHC RDW Plt Count MPV Neut % (Auto) Lymph % (Auto) [place] % (Auto) Eos % (Auto) Baso % (Auto) Neut # (Auto) Lymph # (Auto) [place] # (Auto) Eos # (Auto) Baso # (Auto) Total Counted Immature Gran % Nucleated RBC % Immature Gran # Segmented Neutrophils Band Neutrophils Lymphocytes Monocytes Nucleated RBCs # Platelet Estimate Giant Platelets Immature Plt Fraction Hypochromasia Morphology Comment Patient Temperature ABG pH ABG pH at Pt Temp ABG pCO2 ABG pCO2 at Pt Temp ABG pO2 ABG pO2 at Pt Temp ABG HCO3 ABG Total CO2 ABG O2 Saturation ABG Base Excess ABG Sodium VBG pH VBG pCO2 VBG pO2 VBG HCO3 VBG Total CO2 VBG O2 Saturation VBG Base Excess Hemoglobin Hematocrit Potassium Glucose FiO2 Sodium Chloride Carbon Dioxide Anion Gap BUN Creatinine GFR Calculation BUN/Creatinine Ratio POC Glucose 128 H < 20 L* 135 H Calculated Osmolality Calcium Venous Ioniz Calcium Magnesium Triglycerides Cholesterol LDL Cholesterol VLDL Cholesterol HDL Cholesterol Heart Disease Risk Ratio Crossmatch 10/31/16 10/31/16 07:52 11:43 WBC RBC Hgb Hct MCV MCH MCHC RDW Plt Count MPV Neut % (Auto) Lymph % (Auto) [place] % (Auto) Eos % (Auto) Baso % (Auto) Neut # (Auto) Lymph # (Auto) [place] # (Auto) Eos # (Auto) Baso # (Auto) Total Counted Immature Gran % Nucleated RBC % Immature Gran # Segmented Neutrophils Band Neutrophils Lymphocytes Monocytes Nucleated RBCs # Platelet Estimate Giant Platelets Immature Plt Fraction Hypochromasia Morphology Comment Patient Temperature ABG pH ABG pH at Pt Temp ABG pCO2 ABG pCO2 at Pt Temp ABG pO2 ABG pO2 at Pt Temp ABG HCO3 ABG Total CO2 ABG O2 Saturation ABG Base Excess ABG Sodium VBG pH VBG pCO2 VBG pO2 VBG HCO3 VBG Total CO2 VBG O2 Saturation VBG Base Excess Hemoglobin Hematocrit Potassium Glucose FiO2 Sodium Chloride Carbon Dioxide Anion Gap BUN Creatinine GFR Calculation BUN/Creatinine Ratio POC Glucose 89 233 H Calculated Osmolality Calcium Venous Ioniz Calcium Magnesium Triglycerides Cholesterol LDL Cholesterol VLDL Cholesterol HDL Cholesterol Heart Disease Risk Ratio Crossmatch
--- NOTE | 2016-10-31 13:47 | Nephrology Consult Note ---
History of Present Illness Chief complaint: CRF History of present illness: Mr. Chacon is a 61 year old male with several chronic medical problems including chronic renal insufficiency. He has been followed by Dr. Mancini in the past. He underwent CABG for CAD yesterday. He has done well postoperatively thus far. He denies shortness of breath. Creatinine was 2 prior to surgery. It is 1.8 today. Urine output is adequate. Home Medications Medication Instructions Recorded Confirmed Type Furosemide [Furosemide] 20 mg PO DAILY 10/28/16 10/28/16 History Nebivolol [Bystolic] 10 mg PO DAILY 10/28/16 10/28/16 History Spironolactone [Spironolactone] 50 mg PO DAILY 10/28/16 10/28/16 History Allergies Allergy/AdvReac Type Severity Reaction Status Date / Time Penicillins Allergy Unknown Unknown/Unable Verified 10/28/16 18:25 to obtain Medical,Surgical,& Family Hx - Medical History Cardio: History of: Cardiac Dysrhythmia, Cerebrovascular Disease, CHF, CAD, Hypertension, PVD, Cardiovascular Problems Psychological: History of: Anxiety Disorders Neurology: History of: Cerebrovascular Accident HEENT: History of: Eye Problem Endocrine: History of: Diabetes Mellitus (NIDDM) Respiratory: History of: COPD Renal: History of: Renal Failure, Renal Problems (right kidney missing?) Genitourinary: History of: Kidney Stones Gastrointestinal: History of: Liver Problems, GI Problems - Surgical History Cardiac Surgeries: Sugical HX of: Cardiac Catheterization HEENT Surgeries: Surgical HX of: Eye Surgery - Family History Family History: Reports;: Family Diabetes, Family Heart Disease - Social History Smoking Status: Former smoker Frequency of Alcohol Use: Occasionally Type of Drug Use: None Review of Systems 12 point system: reviewed and no additional remarkable complaints except as stated Exam - Vital Signs Vital signs: Period Temp Pulse Resp BP Sys/[place] Pulse Ox Last 24 Hr 96.0 F-98.2 F 58-112 11-23 84-113/27-75 99-100 Exam: Gen.: Alert and oriented x3. ENT: Pupils equal round reactive to light. EOMs intact. Mucous membranes moist. Neck: Supple. No JVD or bruit. Cardiovascular: Irregularly irregular rhythm Lungs: Clear Abdomen: Soft. Nontender. Positive bowel sounds. No organomegaly Extremities: No edema Results - Labs CBC & BMP: 10/31/16 05:15 10/31/16 05:13 Assessment and Plan (1) CKD (chronic kidney disease) stage 3, GFR 30-59 ml/min Status: Chronic Assessment and plan: 61-year-old man with: * CRF stage III. Creatinine is slightly better than on admission. Volume status normal. Urine output adequate. He is on no nephrotoxic medications * CAD. Status post CABG * Hypertension * Atrial fibrillation * Cirrhosis * COPD Current Visit: Yes (2) COPD (chronic obstructive pulmonary disease) Status: Acute Current Visit: Yes (3) S/P CABG x 1 Status: Acute Current Visit: Yes (4) Atrial fibrillation Status: Chronic Current Visit: Yes Qualifiers: Atrial fibrillation type: persistent Qualified Code(s): I48.1 - Persistent atrial fibrillation (5) Cirrhosis of liver Status: Chronic Current Visit: Yes (6) Coronary artery disease Status: Chronic Current Visit: Yes Qualifiers: Coronary Disease-Associated Artery/Lesion type: [place] artery [place] vs. transplanted heart: [place] heart Associated angina: without angina Qualified Code(s): I25.10 - Atherosclerotic heart disease of [place] coronary artery without angina pectoris (7) Left atrial thrombus Status: Chronic Current Visit: Yes
[2016-10-31] MEDS: MORPHINE 2 MG/1 ML SYRINGE IV PRN ×3 (14:17→21:09)
[2016-11-01] MEDS: MORPHINE 2 MG/1 ML SYRINGE IV PRN ×6 (00:16→20:44)
[2016-11-01 05:04] LABS: Basophils % 0.1 % (0.0-0.8); Hematocrit 25.4 VOL% (42.0-52.0); Hemoglobin 8.5 GM/DL (14.0-18.0); Immature Granulocytes % 0.8 %; Immature Granulocytes Absolute 0.15 #; Lymphocytes # 0.9 10*3/uL (1.4-4.0); Lymphocytes % 5.1 % (21.2-54.2); Mean Corpuscular HGB Conc 33.5 GM/DL (32-36); Mean Corpuscular Hemoglobin 34 PG (27-34); Mean Corpuscular Volume 101.6 FL (87-102); Mean Platelet Volume 12.1 FL (9.6-12.0); Monocytes # 1.4 10*3/uL (0.11-0.8); Monocytes % 7.4 % (1.7-12.7); Neutrophils # 15.8 10*3/uL (1.4-7.4); Neutrophils % 86.6 % (38.7-73.9); Platelet Count 87 T/CUMM (130-400); Red Cell Distribution Width 15.3 % (9.3-17.3); White Blood Count 18.3 T/CUMM (4-12)
[2016-11-01 05:41] LABS: Calcium 7.6 MG/DL (8.5-10.1); Magnesium 2.3 MG/DL (1.8-2.4); Osmolality,Calculated 288.1 MOS/KG (273-304); Potassium 4.9 MMOL/L (3.5-5.1)
[2016-11-01 06:06] LABS: Band Neutrophils 1 % (0-10); Lymphocytes 4 % (20-55); Segmented Neutrophils 91 % (50-85); Total Cells Counted 100
[2016-11-01 06:07] LABS: Hypochromasia 1+; Microcytosis 1+; Platelet Estimate Decreased
[2016-11-01] MEDS: INSULIN REGULAR 100 UNIT/ML SUBCUT SCH ×4 (07:53→20:43)
--- NOTE | 2016-11-01 08:14 | Cardiology Progress Note ---
Cardiology - PN: Subj Interval history: Cardiology note Postop day #2 REYNOSO graft to LAD. Preop EF 50-55% by echo Telemetry shows controlled A. fib O2 sat 96% on room air Blood pressure 102/60 Irregular rhythm no murmur Decreased breath sounds rhonchi in the right base Incision looks good Abdomen benign No leg edema Lab data today White count 18.3 hemoglobin 8.5 hematocrit 25.4 Sodium 135 potassium 4.9 chloride 104 CO2 21 BUN 59 creatinine up to 2.40 Glucose 141 magnesium 2.3 Impression Postop day #2 REYNOSO graft to LAD preop EF 50-55% Chronic atrial fibrillation Chronic renal insufficiency. Baseline creatinine preop 2.0. Creatinine today 2.40 Tobacco abuse Hyperlipidemia COPD History of CVA Alcoholic cirrhosis Plan Hopefully pull the mediastinal tube today. After chest tube/mediastinal tubes are pulled, will need anticoagulation. Patient has chronic atrial fib, history of stroke mildly dilated left atrium with left atrial thrombus adherent to the posterior wall Begin normal saline 100 cc/h BMP in a.m. Exam (Progress Note) - Constitutional Vitals: Period Temp Pulse Resp BP Sys/[place] Pulse Ox Last 24 Hr 97.5 F-98.1 F 58-78 14-28 89-112/58-78 95-100 Result/EKG - Labs CBC & BMP: 11/01/16 04:45 11/01/16 04:45 Labs: Laboratory Results - last 24 hr 10/29/16 10/31/16 10/31/16 04:15 07:52 11:43 WBC RBC Hgb Hct MCV MCH MCHC RDW Plt Count MPV Neut % (Auto) Lymph % (Auto) [place] % (Auto) Eos % (Auto) Baso % (Auto) Neut # (Auto) Lymph # (Auto) [place] # (Auto) Eos # (Auto) Baso # (Auto) Total Counted Immature Gran % Nucleated RBC % Immature Gran # Segmented Neutrophils Band Neutrophils Lymphocytes Monocytes Nucleated RBCs # Platelet Estimate Immature Plt Fraction Hypochromasia Microcytosis Sodium Potassium Chloride Carbon Dioxide Anion Gap BUN Creatinine GFR Calculation BUN/Creatinine Ratio Glucose POC Glucose 89 233 H Calculated Osmolality Calcium Magnesium Crossmatch See Detail 10/31/16 10/31/16 11/01/16 16:08 20:09 04:45 WBC 18.3 H D RBC 2.50 L Hgb 8.5 L Hct 25.4 L MCV 101.6 MCH 34 MCHC 33.5 RDW 15.3 Plt Count 87 L D MPV 12.1 H Neut % (Auto) 86.6 H Lymph % (Auto) 5.1 L [place] % (Auto) 7.4 Eos % (Auto) 0.0 Baso % (Auto) 0.1 Neut # (Auto) 15.8 H Lymph # (Auto) 0.9 L [place] # (Auto) 1.4 H Eos # (Auto) 0.0 Baso # (Auto) 0.0 Total Counted 100 Immature Gran % 0.8 Nucleated RBC % 0.0 Immature Gran # 0.15 Segmented Neutrophils 91 H Band Neutrophils 1 Lymphocytes 4 L Monocytes 4 Nucleated RBCs # 0.00 Platelet Estimate Decreased Immature Plt Fraction 0.0 Hypochromasia 1+ Microcytosis 1+ Sodium Potassium Chloride Carbon Dioxide Anion Gap BUN Creatinine GFR Calculation BUN/Creatinine Ratio Glucose POC Glucose 198 H 206 H Calculated Osmolality Calcium Magnesium Crossmatch 11/01/16 11/01/16 04:45 07:26 WBC RBC Hgb Hct MCV MCH MCHC RDW Plt Count MPV Neut % (Auto) Lymph % (Auto) [place] % (Auto) Eos % (Auto) Baso % (Auto) Neut # (Auto) Lymph # (Auto) [place] # (Auto) Eos # (Auto) Baso # (Auto) Total Counted Immature Gran % Nucleated RBC % Immature Gran # Segmented Neutrophils Band Neutrophils Lymphocytes Monocytes Nucleated RBCs # Platelet Estimate Immature Plt Fraction Hypochromasia Microcytosis Sodium 135 L Potassium 4.9 Chloride 104 Carbon Dioxide 21 Anion Gap 14.9 BUN 59 H D Creatinine 2.40 H GFR Calculation 28 BUN/Creatinine Ratio 24.00 H Glucose 141 H POC Glucose 136 H Calculated Osmolality 288.1 Calcium 7.6 L Magnesium 2.3 Crossmatch Quality Measures - VTE Contraindication to Pharmacological VTE Prophylaxis: Active Bleeding
[2016-11-01] MEDS: EZETIMIBE 10 MG TABLET PO SCH (08:17)
[2016-11-01] MEDS: CHLORHEXIDINE 0.12% ORAL RINSE 60 ML BOTTLE SWISH/SPIT SCH ×2 (08:17→20:44)
[2016-11-01] MEDS: CLOPIDOGREL 75 MG TABLET PO SCH (08:17)
[2016-11-01] MEDS: ASPIRIN EC 325 MG TABLET PO SCH (08:17)
[2016-11-01] MEDS: AMIODARONE 200 MG TABLET PO SCH (08:17)
[2016-11-01] MEDS: SODIUM CHLORIDE 0.9% 1,000 ML IV SCH ×2 (08:26→22:15)
[2016-11-01] MEDS: FUROSEMIDE 40 MG TABLET PO SCH (08:27)
--- NOTE | 2016-11-01 09:34 | Nephrology Progress Note ---
Nephrology - PN: Subj Interval history: He is awake and alert. He denies shortness of breath. Exam (PN)-Nephrology - Vital Signs Vital signs: Period Temp Pulse Resp BP Sys/[place] Pulse Ox Last 24 Hr 97.5 F-98.1 F 58-82 14-28 93-116/58-78 95-100 Exam: Gen.: Alert and oriented x3. ENT: Pupils equal round reactive to light. EOMs intact. Mucous membranes moist. Neck: Supple. No JVD or bruit. Cardiovascular: Irregularly irregular rhythm. Lungs: Clear Abdomen: Soft. Nontender. Positive bowel sounds. No organomegaly Extremities: No edema - Lab 11/01/16 04:45 11/01/16 04:45 Most recent lab results ABG pH 7.367 (7.35-7.45) 10/30/16 16:32 ABG pCO2 36.5 MM HG (35-48) 10/30/16 16:32 ABG pO2 186.0 MM HG (80-95) H 10/30/16 16:32 ABG HCO3 21.2 MMOL/L (20-26) 10/30/16 16:32 ABG O2 Saturation 99.7 % (95-100) 10/30/16 16:32 Calcium 7.6 MG/DL (8.5-10.1) L 11/01/16 04:45 Magnesium 2.3 MG/DL (1.8-2.4) 11/01/16 04:45 Assessment and Plan (1) CKD (chronic kidney disease) stage 3, GFR 30-59 ml/min Status: Chronic Assessment and plan: 61-year-old man with: * CRF stage III. Creatinine is higher today. Agree with IV fluid * CAD. Status post CABG * Hypertension * Atrial fibrillation * Cirrhosis * COPD Current Visit: Yes (2) COPD (chronic obstructive pulmonary disease) Status: Acute Current Visit: Yes (3) S/P CABG x 1 Status: Acute Current Visit: Yes (4) Atrial fibrillation Status: Chronic Current Visit: Yes Qualifiers: Atrial fibrillation type: persistent Qualified Code(s): I48.1 - Persistent atrial fibrillation (5) Cirrhosis of liver Status: Chronic Current Visit: Yes (6) Coronary artery disease Status: Chronic Current Visit: Yes Qualifiers: Coronary Disease-Associated Artery/Lesion type: [place] artery [place] vs. transplanted heart: [place] heart Associated angina: without angina Qualified Code(s): I25.10 - Atherosclerotic heart disease of [place] coronary artery without angina pectoris (7) Left atrial thrombus Status: Chronic Current Visit: Yes
--- NOTE | 2016-11-01 09:55 | XRay Report ---
Portable chest November 01, 2016 Indication: Chest tube placement evaluate pneumothorax Comparison images from previous day at 0326 hours Findings: Cardiomediastinal contours are stable with underlying cardiomegaly and interval cardiopulmonary artery bypass graft. [place] catheter is been removed. Remaining tubes and lines are unchanged. Coarsened interstitial pattern throughout with worsening atelectasis and effusion within the right lung base. Osseous structures are stable. Impression: 1. Interval removal of the [place] catheter, remaining supporting tubes and devices are unchanged. 2. Mild interstitial edema pattern persist with developing atelectasis and pleural effusion within the right lung base PROCEDURE INTERPRETED AT [facility] DEPARTMENT OF RADIOLOGY Final Report Signed by: Pelon Dietrich
--- NOTE | 2016-11-01 10:54 | Cardiothoracic Progress Note ---
Assessment and Plan (1) Coronary artery disease Status: Chronic Assessment and plan: 61-year-old man 2 days status post high risk CABG. He has been doing very well. Is asymptomatic. He has been active. Chest tube output is minimal. I removed the chest tubes today. He is awaiting bed on telemetry when it becomes available. I anticipate discharge within the next 48 hours. Current Visit: Yes Qualifiers: Coronary Disease-Associated Artery/Lesion type: [place] artery [place] vs. transplanted heart: [place] heart Associated angina: without angina Qualified Code(s): I25.10 - Atherosclerotic heart disease of [place] coronary artery without angina pectoris Exam (Progress Note) - Constitutional Vitals: Period Temp Pulse Resp BP Sys/[place] Pulse Ox Last 24 Hr 97.5 F-98.1 F 58-82 14-28 93-116/58-78 95-100 Result/EKG - Labs CBC & BMP: 11/01/16 04:45 11/01/16 04:45 Labs: Laboratory Results - last 24 hr 10/29/16 10/31/16 10/31/16 04:15 11:43 16:08 WBC RBC Hgb Hct MCV MCH MCHC RDW Plt Count MPV Neut % (Auto) Lymph % (Auto) [place] % (Auto) Eos % (Auto) Baso % (Auto) Neut # (Auto) Lymph # (Auto) [place] # (Auto) Eos # (Auto) Baso # (Auto) Total Counted Immature Gran % Nucleated RBC % Immature Gran # Segmented Neutrophils Band Neutrophils Lymphocytes Monocytes Nucleated RBCs # Platelet Estimate Immature Plt Fraction Hypochromasia Microcytosis Sodium Potassium Chloride Carbon Dioxide Anion Gap BUN Creatinine GFR Calculation BUN/Creatinine Ratio Glucose POC Glucose 233 H 198 H Calculated Osmolality Calcium Magnesium Crossmatch See Detail 10/31/16 11/01/16 11/01/16 20:09 04:45 04:45 WBC 18.3 H D RBC 2.50 L Hgb 8.5 L Hct 25.4 L MCV 101.6 MCH 34 MCHC 33.5 RDW 15.3 Plt Count 87 L D MPV 12.1 H Neut % (Auto) 86.6 H Lymph % (Auto) 5.1 L [place] % (Auto) 7.4 Eos % (Auto) 0.0 Baso % (Auto) 0.1 Neut # (Auto) 15.8 H Lymph # (Auto) 0.9 L [place] # (Auto) 1.4 H Eos # (Auto) 0.0 Baso # (Auto) 0.0 Total Counted 100 Immature Gran % 0.8 Nucleated RBC % 0.0 Immature Gran # 0.15 Segmented Neutrophils 91 H Band Neutrophils 1 Lymphocytes 4 L Monocytes 4 Nucleated RBCs # 0.00 Platelet Estimate Decreased Immature Plt Fraction 0.0 Hypochromasia 1+ Microcytosis 1+ Sodium 135 L Potassium 4.9 Chloride 104 Carbon Dioxide 21 Anion Gap 14.9 BUN 59 H D Creatinine 2.40 H GFR Calculation 28 BUN/Creatinine Ratio 24.00 H Glucose 141 H POC Glucose 206 H Calculated Osmolality 288.1 Calcium 7.6 L Magnesium 2.3 Crossmatch 11/01/16 07:26 WBC RBC Hgb Hct MCV MCH MCHC RDW Plt Count MPV Neut % (Auto) Lymph % (Auto) [place] % (Auto) Eos % (Auto) Baso % (Auto) Neut # (Auto) Lymph # (Auto) [place] # (Auto) Eos # (Auto) Baso # (Auto) Total Counted Immature Gran % Nucleated RBC % Immature Gran # Segmented Neutrophils Band Neutrophils Lymphocytes Monocytes Nucleated RBCs # Platelet Estimate Immature Plt Fraction Hypochromasia Microcytosis Sodium Potassium Chloride Carbon Dioxide Anion Gap BUN Creatinine GFR Calculation BUN/Creatinine Ratio Glucose POC Glucose 136 H Calculated Osmolality Calcium Magnesium Crossmatch Quality Measures - VTE Contraindication to Pharmacological VTE Prophylaxis: Active Bleeding
--- NOTE | 2016-11-01 13:06 | XRay Report ---
Portable chest November 01, 2016 Indication: Shortness of breath Comparison image from same date at 0301 hours Findings: Interval mediastinal and left chest tube removal. Remaining tubes and lines remain in satisfactory position. Chest is otherwise unchanged in the 8 hours since prior study. Impression: Uncomplicated mediastinal and left chest tube removal, otherwise examination is unchanged in the interim PROCEDURE INTERPRETED AT [facility] DEPARTMENT OF RADIOLOGY Final Report Signed by: Pelon Dietrich
[2016-11-02] MEDS: SODIUM CHLORIDE 0.9% 1,000 ML IV SCH ×2 (03:48→14:12)
[2016-11-02 05:16] LABS: Basophils % 0.2 % (0.0-0.8); Eosinophils % 0.1 % (0.00-10.9); Hematocrit 25.1 VOL% (42.0-52.0); Hemoglobin 8.3 GM/DL (14.0-18.0); Immature Granulocytes % 0.6 %; Immature Granulocytes Absolute 0.07 #; Lymphocytes # 1.2 10*3/uL (1.4-4.0); Lymphocytes % 10.5 % (21.2-54.2); Mean Corpuscular HGB Conc 33.1 GM/DL (32-36); Mean Corpuscular Hemoglobin 34 PG (27-34); Mean Platelet Volume 12.2 FL (9.6-12.0); Monocytes # 1.4 10*3/uL (0.11-0.8); NRBC # 0.02 10*3/uL; Neutrophils # 8.9 10*3/uL (1.4-7.4); Neutrophils % 76.6 % (38.7-73.9); Red Blood Count 2.46 MC/CUMM (3.8-5.5); Red Cell Distribution Width 15.2 % (9.3-17.3); White Blood Count 11.7 T/CUMM (4-12)
[2016-11-02 05:26] LABS: Platelet Count 77 T/CUMM (130-400)
[2016-11-02 05:42] LABS: Calcium 7.6 MG/DL (8.5-10.1); Calcium 7.8 MG/DL (8.5-10.1); Magnesium 2.2 MG/DL (1.8-2.4); Potassium 4.3 MMOL/L (3.5-5.1); Potassium 4.6 MMOL/L (3.5-5.1)
[2016-11-02 07:29] LABS: Hypochromasia 2+; Microcytosis 1+; Platelet Estimate Decreased
[2016-11-02] MEDS: INSULIN REGULAR 100 UNIT/ML SUBCUT SCH ×4 (08:34→21:21)
[2016-11-02] MEDS: FUROSEMIDE 40 MG TABLET PO SCH (08:47)
[2016-11-02] MEDS: EZETIMIBE 10 MG TABLET PO SCH (08:48)
[2016-11-02] MEDS: AMIODARONE 200 MG TABLET PO SCH (08:48)
[2016-11-02] MEDS: ASPIRIN EC 325 MG TABLET PO SCH (08:48)
[2016-11-02] MEDS: CLOPIDOGREL 75 MG TABLET PO SCH (08:48)
--- NOTE | 2016-11-02 09:16 | Cardiology Progress Note ---
Cardiology - PN: Subj Interval history: Cardiology note Postop day #3 REYNOSO graft to LAD. Preop EF 50-55% by echo Telemetry shows controlled atrial fib O2 sat 93% on room air Blood pressure 96/56 in the left arm by me Irregular rhythm no murmur Decreased breath sounds few rhonchi in the bases Incision looks good abdomen benign No leg edema Lab data today White count 11.7 hemoglobin 8.3 hematocrit 25.1 Sodium 136 potassium 4.3 chloride 106 CO2 21 BUN 72 creatinine 2.40 Magnesium 2.2 glucose 100 Impression Postop day #3 REYNOSO graft to LAD preop EF 50-55% Chronic atrial fibrillation Chronic renal insufficiency. Baseline creatinine preop 2.0. Creatinine today 2.40. Tobacco abuse Hyperlipidemia COPD History of CVA Alcoholic cirrhosis Plan Encourage nutrition Continue normal saline 100 cc/h BMP in a.m. This patient should have anticoagulation. Chronic atrial fibrillation, history of stroke, moderately dilated left atrium with left atrial thrombus adherent to the posterior wall Exam (Progress Note) - Constitutional Vitals: Period Temp Pulse Resp BP Sys/[place] Pulse Ox Last 24 Hr 97.4 F-98.3 F 64-82 14-22 96-120/60-73 92-100 Result/EKG - Labs CBC & BMP: 11/02/16 04:46 11/02/16 04:46 Labs: Laboratory Results - last 24 hr 11/01/16 11/01/16 11/01/16 11:25 15:46 19:18 WBC RBC Hgb Hct MCV MCH MCHC RDW Plt Count MPV Neut % (Auto) Lymph % (Auto) [place] % (Auto) Eos % (Auto) Baso % (Auto) Neut # (Auto) Lymph # (Auto) [place] # (Auto) Eos # (Auto) Baso # (Auto) Immature Gran % Nucleated RBC % Immature Gran # Nucleated RBCs # Platelet Estimate Immature Plt Fraction Hypochromasia Microcytosis Sodium Potassium Chloride Carbon Dioxide Anion Gap BUN Creatinine GFR Calculation BUN/Creatinine Ratio Glucose POC Glucose 193 H 195 H 166 H Calculated Osmolality Calcium Magnesium 11/01/16 11/02/16 11/02/16 23:50 04:46 04:46 WBC 11.7 D RBC 2.46 L Hgb 8.3 L Hct 25.1 L MCV 102.0 MCH 34 MCHC 33.1 RDW 15.2 Plt Count 77 L MPV 12.2 H Neut % (Auto) 76.6 H Lymph % (Auto) 10.5 L [place] % (Auto) 12.0 Eos % (Auto) 0.1 Baso % (Auto) 0.2 Neut # (Auto) 8.9 H Lymph # (Auto) 1.2 L [place] # (Auto) 1.4 H Eos # (Auto) 0.0 Baso # (Auto) 0.0 Immature Gran % 0.6 Nucleated RBC % 0.2 Immature Gran # 0.07 Nucleated RBCs # 0.02 Platelet Estimate Decreased Immature Plt Fraction 6.1 Hypochromasia 2+ Microcytosis 1+ Sodium 136 Potassium 4.6 Chloride 105 Carbon Dioxide 21 Anion Gap 14.6 BUN 71 H Creatinine 2.50 H GFR Calculation 27 BUN/Creatinine Ratio 28.00 H Glucose 101 POC Glucose 144 H Calculated Osmolality 292.0 Calcium 7.8 L Magnesium 11/02/16 11/02/16 11/02/16 04:46 04:46 07:24 WBC RBC Hgb Hct MCV MCH MCHC RDW Plt Count MPV Neut % (Auto) Lymph % (Auto) [place] % (Auto) Eos % (Auto) Baso % (Auto) Neut # (Auto) Lymph # (Auto) [place] # (Auto) Eos # (Auto) Baso # (Auto) Immature Gran % Nucleated RBC % Immature Gran # Nucleated RBCs # Platelet Estimate Immature Plt Fraction Hypochromasia Microcytosis Sodium 136 Potassium 4.3 Chloride 106 Carbon Dioxide 21 Anion Gap 13.3 BUN 72 H Creatinine 2.40 H GFR Calculation 28 BUN/Creatinine Ratio 30.00 H Glucose 100 POC Glucose 98 Calculated Osmolality 292.0 Calcium 7.6 L Magnesium 2.2 2.2 Quality Measures - VTE Contraindication to Pharmacological VTE Prophylaxis: Active Bleeding
--- NOTE | 2016-11-02 09:59 | Cardiothoracic Progress Note ---
Assessment and Plan (1) Coronary artery disease Status: Chronic Assessment and plan: 61-year-old man 3 days status post high risk CABG. He has been doing very well. Is asymptomatic. He has been active. Will start on decannulation for his atrial fibrillation tomorrow. He will likely be discharged home tomorrow. Current Visit: Yes Qualifiers: Coronary Disease-Associated Artery/Lesion type: [place] artery [place] vs. transplanted heart: [place] heart Associated angina: without angina Qualified Code(s): I25.10 - Atherosclerotic heart disease of [place] coronary artery without angina pectoris Exam (Progress Note) - Constitutional Vitals: Period Temp Pulse Resp BP Sys/[place] Pulse Ox Last 24 Hr 97.4 F-98.3 F 64-82 17-22 96-120/60-73 92-100 Result/EKG - Labs CBC & BMP: 11/02/16 04:46 11/02/16 04:46 Labs: Laboratory Results - last 24 hr 11/01/16 11/01/16 11/01/16 11:25 15:46 19:18 WBC RBC Hgb Hct MCV MCH MCHC RDW Plt Count MPV Neut % (Auto) Lymph % (Auto) [place] % (Auto) Eos % (Auto) Baso % (Auto) Neut # (Auto) Lymph # (Auto) [place] # (Auto) Eos # (Auto) Baso # (Auto) Immature Gran % Nucleated RBC % Immature Gran # Nucleated RBCs # Platelet Estimate Immature Plt Fraction Hypochromasia Microcytosis Sodium Potassium Chloride Carbon Dioxide Anion Gap BUN Creatinine GFR Calculation BUN/Creatinine Ratio Glucose POC Glucose 193 H 195 H 166 H Calculated Osmolality Calcium Magnesium 11/01/16 11/02/16 11/02/16 23:50 04:46 04:46 WBC 11.7 D RBC 2.46 L Hgb 8.3 L Hct 25.1 L MCV 102.0 MCH 34 MCHC 33.1 RDW 15.2 Plt Count 77 L MPV 12.2 H Neut % (Auto) 76.6 H Lymph % (Auto) 10.5 L [place] % (Auto) 12.0 Eos % (Auto) 0.1 Baso % (Auto) 0.2 Neut # (Auto) 8.9 H Lymph # (Auto) 1.2 L [place] # (Auto) 1.4 H Eos # (Auto) 0.0 Baso # (Auto) 0.0 Immature Gran % 0.6 Nucleated RBC % 0.2 Immature Gran # 0.07 Nucleated RBCs # 0.02 Platelet Estimate Decreased Immature Plt Fraction 6.1 Hypochromasia 2+ Microcytosis 1+ Sodium 136 Potassium 4.6 Chloride 105 Carbon Dioxide 21 Anion Gap 14.6 BUN 71 H Creatinine 2.50 H GFR Calculation 27 BUN/Creatinine Ratio 28.00 H Glucose 101 POC Glucose 144 H Calculated Osmolality 292.0 Calcium 7.8 L Magnesium 11/02/16 11/02/16 11/02/16 04:46 04:46 07:24 WBC RBC Hgb Hct MCV MCH MCHC RDW Plt Count MPV Neut % (Auto) Lymph % (Auto) [place] % (Auto) Eos % (Auto) Baso % (Auto) Neut # (Auto) Lymph # (Auto) [place] # (Auto) Eos # (Auto) Baso # (Auto) Immature Gran % Nucleated RBC % Immature Gran # Nucleated RBCs # Platelet Estimate Immature Plt Fraction Hypochromasia Microcytosis Sodium 136 Potassium 4.3 Chloride 106 Carbon Dioxide 21 Anion Gap 13.3 BUN 72 H Creatinine 2.40 H GFR Calculation 28 BUN/Creatinine Ratio 30.00 H Glucose 100 POC Glucose 98 Calculated Osmolality 292.0 Calcium 7.6 L Magnesium 2.2 2.2 Quality Measures - VTE Contraindication to Pharmacological VTE Prophylaxis: Active Bleeding
[2016-11-02] MEDS: CHLORHEXIDINE 0.12% ORAL RINSE 60 ML BOTTLE SWISH/SPIT SCH ×2 (12:59→21:21)
--- NOTE | 2016-11-02 13:45 | XRay Report ---
Portable chest November 02, 2016 at 0603 hours Indication: Difficulty breathing Comparison images from previously at 0301 hours Findings: Cardiomediastinal contours are stable post coronary artery bypass graft. Left chest tube has been removed. Left lung remains expanded along the chest wall. Moderate to large right pleural effusion is stable partially silhouetting the right hemidiaphragm. Left lung remains well aerated. No acute osseous abnormalities. Impression: Moderate to large right pleural effusion, relatively unchanged in the interim Uncomplicated left chest tube removal PROCEDURE INTERPRETED AT [facility] DEPARTMENT OF RADIOLOGY Final Report Signed by: Pelon Dietrich
--- NOTE | 2016-11-02 14:41 | Nephrology Progress Note ---
Nephrology - PN: Subj Interval history: He denies shortness of breath or chest pain. He has been up in the chair some Exam (PN)-Nephrology - Vital Signs Vital signs: Period Temp Pulse Resp BP Sys/[place] Pulse Ox Last 24 Hr 96.9 F-98.3 F 67-82 18-20 96-118/60-73 91-98 Exam: Gen.: Alert and oriented x3. ENT: Pupils equal round reactive to light. EOMs intact. Mucous membranes moist. Neck: Supple. No JVD or bruit. Cardiovascular: Irregularly irregular rhythm. Lungs: Clear Abdomen: Soft. Nontender. Positive bowel sounds. No organomegaly Extremities: No edema - Lab 11/02/16 04:46 11/02/16 04:46 Most recent lab results ABG pH 7.367 (7.35-7.45) 10/30/16 16:32 ABG pCO2 36.5 MM HG (35-48) 10/30/16 16:32 ABG pO2 186.0 MM HG (80-95) H 10/30/16 16:32 ABG HCO3 21.2 MMOL/L (20-26) 10/30/16 16:32 ABG O2 Saturation 99.7 % (95-100) 10/30/16 16:32 Calcium 7.6 MG/DL (8.5-10.1) L 11/02/16 04:46 Magnesium 2.2 MG/DL (1.8-2.4) 11/02/16 04:46 Assessment and Plan (1) CKD (chronic kidney disease) stage 3, GFR 30-59 ml/min Status: Chronic Assessment and plan: 61-year-old man with: * CRF stage III. Creatinine is stable. Continue IV fluid. Urine output not being documented as ordered * CAD. Status post CABG * Hypertension * Atrial fibrillation * Cirrhosis * COPD Current Visit: Yes (2) COPD (chronic obstructive pulmonary disease) Status: Acute Current Visit: Yes (3) S/P CABG x 1 Status: Acute Current Visit: Yes (4) Atrial fibrillation Status: Chronic Current Visit: Yes Qualifiers: Atrial fibrillation type: persistent Qualified Code(s): I48.1 - Persistent atrial fibrillation (5) Cirrhosis of liver Status: Chronic Current Visit: Yes (6) Coronary artery disease Status: Chronic Current Visit: Yes Qualifiers: Coronary Disease-Associated Artery/Lesion type: [place] artery [place] vs. transplanted heart: [place] heart Associated angina: without angina Qualified Code(s): I25.10 - Atherosclerotic heart disease of [place] coronary artery without angina pectoris (7) Left atrial thrombus Status: Chronic Current Visit: Yes
[2016-11-02] MEDS ORDERED: FUROSEMIDE 40 MG/4 ML VIAL IV ONE (19:42)
[2016-11-03 05:42] LABS: Calcium 7.9 MG/DL (8.5-10.1); Magnesium 2.2 MG/DL (1.8-2.4); Potassium 4.4 MMOL/L (3.5-5.1)
[2016-11-03] MEDS: EZETIMIBE 10 MG TABLET PO SCH ×2 (07:45→10:21)
[2016-11-03] MEDS: AMIODARONE 200 MG TABLET PO SCH ×2 (07:46→10:20)
[2016-11-03] MEDS: ASPIRIN EC 325 MG TABLET PO SCH ×2 (07:46→10:20)
[2016-11-03] MEDS: CLOPIDOGREL 75 MG TABLET PO SCH ×2 (07:46→10:21)
[2016-11-03] MEDS: FUROSEMIDE 40 MG TABLET PO SCH ×2 (07:46→10:20)
[2016-11-03] MEDS: CHLORHEXIDINE 0.12% ORAL RINSE 60 ML BOTTLE SWISH/SPIT SCH ×2 (07:47→10:21)
[2016-11-03] MEDS: INSULIN REGULAR 100 UNIT/ML SUBCUT SCH ×2 (08:51→12:01)
[2016-11-03] MEDS: MORPHINE 2 MG/1 ML SYRINGE IV PRN ×2 (10:21→15:05)
--- NOTE | 2016-11-03 10:47 | Cardiology Progress Note ---
Cardiology - PN: Subj Interval history: Cardiology note Postop day #4 REYNOSO graft to LAD, preop EF 50-55% by echo Telemetry shows controlled atrial fib O2 sat 95% on room air Blood pressure 110/68 in the left arm by me Irregular rhythm no murmur Decreased breath sounds few basilar rhonchi Incision looks good Abdomen nontender No leg edema. Lab data today Sodium 136 potassium 4.4 chloride 105 CO2 22 BUN 78 creatinine 2.40 Glucose 140 magnesium 2.2 Weight 75.2 kg Impression Postop day #4 REYNOSO graft to LAD preop EF 50-55% Chronic atrial fibrillation Chronic renal insufficiency. Baseline creatinine preop 2.0. Creatinine today 2.4 and holding Tobacco abuse Hyperlipidemia History of CVA Alcoholic cirrhosis Plan DC amiodarone Lopressor 50 mg daily for rate control The patient should have chronic anticoagulation. Exam (Progress Note) - Constitutional Vitals: Period Temp Pulse Resp BP Sys/[place] Pulse Ox Last 24 Hr 96.9 F-98.7 F 40-87 16-20 106-118/61-77 91-96 Result/EKG - Labs CBC & BMP: 11/02/16 04:46 11/03/16 04:32 Labs: Laboratory Results - last 24 hr 11/02/16 11/02/16 11/02/16 11:31 16:17 20:28 Sodium Potassium Chloride Carbon Dioxide Anion Gap BUN Creatinine GFR Calculation BUN/Creatinine Ratio Glucose POC Glucose 142 H 196 H 163 H Calculated Osmolality Calcium Magnesium 11/03/16 11/03/16 04:32 07:51 Sodium 136 Potassium 4.4 Chloride 105 Carbon Dioxide 22 Anion Gap 13.4 BUN 78 H Creatinine 2.40 H GFR Calculation 30 BUN/Creatinine Ratio 32.00 H Glucose 99 POC Glucose 140 H Calculated Osmolality 294.0 Calcium 7.9 L Magnesium 2.2 Quality Measures - VTE Contraindication to Pharmacological VTE Prophylaxis: Active Bleeding
[2016-11-03] MEDS ORDERED: METOPROLOL TARTRATE 50 MG TABLET PO SCH (11:00)
--- NOTE | 2016-11-03 15:09 | Discharge Summary ---
Hospital Course - Hospital Course Hospital Course: The patient was transferred here from [place] under my care for high risk CABG. The patient was taken to the OR and CABG was performed without any problems. He remains in the ICU for 1 day. He was extubated within 524 hours after surgery. He did very well. He was transferred to telemetry on postoperative day 1. Chest tubes were removed. He was ambulate and very well. His pain was well-controlled. He remained hemodynamically stable without any issues. He continued to do well and he was tolerating his diet. He was ready for discharge on postop day 4. He was advised to stay in town for the ensuing 48 hours as he lives 4 hours away. He was also advised to follow-up with Dr. Breen for his claudication. - Time spent with patient Time with patient DS: Greater than 30 minutes Diagnosis - Discharge Diagnosis (1) Coronary artery disease Status: Chronic Discharge Plan - Discharge Data Disposition: Disch To Home/Self Care Condition at Discharge: Stable Discharge Diet: advance to your usual diet Activity: resume usual activities as tolerated Hygiene: no restrictions Contact your physician if you experience:: fever over 101, Difficulty voiding, Nausea/Vomiting, Shortness of breath, Bleeding - Discharge Medications New Metoprolol Tartrate Tab [Lopressor Tab] 50 mg PO DAILY #60 tablet Aspirin EC Tab 325 mg PO DAILY #60 tablet Dabigatran [Pradaxa] 75 mg PO BID #60 capsule Ezetimibe [Zetia] 10 mg PO DAILY tablet Furosemide Tab [Lasix Tab] 40 mg PO DAILY #60 tablet HYDROcodone/ACETAMIN 5-325 [Milo 5-325] 1 tablet PO Q4H PRN tablet PRN Reason: Pain Moderate (4-7) Continue Spironolactone 50 mg PO DAILY Discontinued Nebivolol [Bystolic] 10 mg PO DAILY Furosemide [Furosemide] 20 mg PO DAILY - Follow Up or Referral - Forms/Instructions Exam - Constitutional Vitals: Period Temp Pulse Resp BP Sys/[place] Pulse Ox Last 24 Hr 97.0 F-98.7 F 40-87 16-20 106-118/62-79 91-96 Discharge Results Procedures and tests throughout hospitalization: Pending Orders 10/29/16 04:15 Fresh Frozen Plasma IN AM Red Blood Cells Leuko Red IN AM Single Donor Platelets IN AM Type and Screen Routine 11/02/16 06:10 VL arterial vascular study LE Routine Labs on day of discharge: Labs from last 24 hours 11/03/16 11/03/16 11/03/16 11:42 07:51 04:32 Sodium 136 Potassium 4.4 Chloride 105 Carbon Dioxide 22 Anion Gap 13.4 BUN 78 H Creatinine 2.40 H GFR Calculation 30 BUN/Creatinine Ratio 32.00 H Glucose 99 POC Glucose 177 H 140 H Calculated Osmolality 294.0 Calcium 7.9 L Magnesium 2.2 11/02/16 11/02/16 11/02/16 20:28 16:17 11:31 Sodium Potassium Chloride Carbon Dioxide Anion Gap BUN Creatinine GFR Calculation BUN/Creatinine Ratio Glucose POC Glucose 163 H 196 H 142 H Calculated Osmolality Calcium Magnesium DS: Provider Date of admission: 10/28/16 17:48 Primary care physician: JULIA BRAYNT Attending physician on admission: Danitza Oneal Consults: 10/28/16 14:40 Consult to Anesthesiology [CONS] Routine Consulting Provider: Reason for Anesthesiology: Pre-op Clearance Consult to Cardiac Rehabilitation [CONS] Routine Reason for Cardiac Rehabilitation: Other Consult Comment: Cardiac rehab to evaluate and recommend Consult to Dietitian [CONS] Routine Reason for Dietitian: Other Consult Comment: low salt, low cholesterol, diet Consult to Occupational Therapy [CONS] Routine Reason for Occupational Therapy: Evaluate and Treat Consult to Pastoral Services [CONS] Routine Comment: Emotional support Consult to Physical Therapy [CONS] Routine Reason for Physical Therapy: Evaluate and Treat 10/30/16 10:44 Consult to Occupational Therapy [CONS] Routine Reason for Occupational Therapy: Evaluate and Treat Start Therapy: Tomorrow Consult to Physical Therapy [CONS] Routine Reason for Physical Therapy: Evaluate and Treat Start Therapy: Tomorrow 10/30/16 11:45 Consult to Physician [CONS] Routine Comment: CIS Consulting Provider: Consulting Provider Notified: Yes Consult to Specialist Group: Cardiology Person Notified: Jackie Spear Date Notified: 10/30/16 Time Notified: 11:46 Consult Notification Comment: she spoke to dr oneal about this patient and consult pre-op. 10/31/16 10:42 Consult to Physician [CONS] Routine Comment: Consulting Provider: Yang Dye Consulting Provider Notified: Yes Consult to Specialist Group: Nephrology When should Consulting Provider be notified: Now Person Notified: REGULO Date Notified: 10/31/16 Time Notified: 11:10 Discharging clinician: Danitza Oneal Expected date of discharge: 11/03/16
--- NOTE | 2016-11-03 15:47 | Nephrology Progress Note ---
Nephrology - PN: Subj Interval history: No shortness of breath. No new symptoms Exam (PN)-Nephrology - Vital Signs Vital signs: Period Temp Pulse Resp BP Sys/[place] Pulse Ox Last 24 Hr 97.0 F-98.7 F 40-87 16-20 106-118/62-79 91-96 Exam: Gen.: Alert and oriented x3. ENT: Pupils equal round reactive to light. EOMs intact. Mucous membranes moist. Neck: Supple. No JVD or bruit. Cardiovascular: Irregularly irregular rhythm. Lungs: Clear Abdomen: Soft. Nontender. Positive bowel sounds. No organomegaly Extremities: No edema - Lab 11/02/16 04:46 11/03/16 04:32 Most recent lab results ABG pH 7.367 (7.35-7.45) 10/30/16 16:32 ABG pCO2 36.5 MM HG (35-48) 10/30/16 16:32 ABG pO2 186.0 MM HG (80-95) H 10/30/16 16:32 ABG HCO3 21.2 MMOL/L (20-26) 10/30/16 16:32 ABG O2 Saturation 99.7 % (95-100) 10/30/16 16:32 Calcium 7.9 MG/DL (8.5-10.1) L 11/03/16 04:32 Magnesium 2.2 MG/DL (1.8-2.4) 11/03/16 04:32 Assessment and Plan (1) CKD (chronic kidney disease) stage 3, GFR 30-59 ml/min Status: Chronic Assessment and plan: 61-year-old man with: * CRF stage III. Creatinine is stable. He will follow-up with Dr. Mancini as an outpatient * CAD. Status post CABG * Hypertension * Atrial fibrillation * Cirrhosis * COPD Current Visit: Yes (2) COPD (chronic obstructive pulmonary disease) Status: Acute Current Visit: Yes (3) S/P CABG x 1 Status: Acute Current Visit: Yes (4) Atrial fibrillation Status: Chronic Current Visit: Yes Qualifiers: Atrial fibrillation type: persistent Qualified Code(s): I48.1 - Persistent atrial fibrillation (5) Cirrhosis of liver Status: Chronic Current Visit: Yes (6) Coronary artery disease Status: Chronic Current Visit: Yes Qualifiers: Coronary Disease-Associated Artery/Lesion type: [place] artery [place] vs. transplanted heart: [place] heart Associated angina: without angina Qualified Code(s): I25.10 - Atherosclerotic heart disease of [place] coronary artery without angina pectoris (7) Left atrial thrombus Status: Chronic Current Visit: Yes Specialty Discharge - Follow Up or Referrals Follow up with: Danitza Epperson [Physician] - (follow up in 3 weeks ) Yang Jones MD [Physician] - 1 Week (f/u in one week on the same day as dr quiroz. seeing dr jones for Lower extremity claudication) James Quiroz MD [Physician] - 1 Week (f/u in one week same day as dr jones)
[2016-11-03 16:58] VITALS: BP 108/64
[2016-11-03] MEDS ORDERED: DABIGATRAN 75 MG CAPSULE PO SCH (21:00)
== END 2016-11-03 16:55 | disposition home or self-care (01) | DRG 236 ==
LOC: N.TELES 17:48 → N.CVR 10-30 08:45 → N.ICU 10-30 20:41 → N.TELES 11-01 12:54
PROVIDERS: ADMIT Thoracic Surgery (Cardiothoracic Vascular Surgery); ATTEND Thoracic Surgery (Cardiothoracic Vascular Surgery)